=== PATIENT | female | born 1970 | race African-American/Black ===

== ENCOUNTER → 2017-11-11 14:57 | Outpatient (CLI) | payer MEDICAID, SELFPAY ==
--- NOTE | 2017-11-11 15:05 | BI_ITS ---
MAMMOGRAPHY - BILATERAL SCREENING REASON FOR EXAM: Female, 46 years old. Routine annual screening examination. PERTINENT HISTORY: Remote right excisional breast biopsy. TECHNIQUE: Digital bilateral breast nenita (3D mammographic acquisition) in the CC and MLO projections. 2-D mediolateral oblique (MLO) and craniocaudad (CC) views of both breasts were obtained. CAD: Full Field Digital Mammography with Computer Added Detection was performed. COMPARISON: Comparison is made with prior outside examination dated August 30, 2012. FINDINGS: Breast Composition: The breasts are heterogeneously dense, which may obscure small masses. There are no dominant masses or suspicious calcifications. No other significant abnormalities are identified. There has been no significant change since the prior study. BI/SCREENING MAMM (CAD), BILAT IMPRESSION: Stable bilateral screening mammogram. Yearly follow-up mammogram recommended. (A) ASSESSMENT CATEGORY: BIRADS Category 1: Negative. A letter regarding these results will be sent to the patient by the facility within 30 days. Approximately 10% of breast cancers are not detected by mammography. A normal mammogram should not delay biopsy of a clinically suspicious abnormality. [id number] Electronically Signed: Hunter De Anda MD at 9:25 EDT Tel [phone], Service support ,
== END ==
DX: Z12.31 Encounter for screening mammogram for malignant neoplasm of breast (principal)
CPT/HCPCS: 77063; 77067

== ENCOUNTER → 2019-01-02 15:38 | Outpatient (CLI) | payer MEDICAID, SELFPAY ==
--- NOTE | 2019-01-02 15:42 | RAD_ITS ---
STUDY: X-RAY - LUMBAR SPINE REASON FOR EXAM: Female, 48 years old. Left sciatica TECHNIQUE: 3 view(s) of the lumbar spine were obtained. COMPARISON: None FINDINGS: Normal lumbar lordosis. There is mild levo scoliosis. There is a normal alignment of the vertebrae. No evidence for acute fracture or dictation.. Disc space heights are well-maintained. There is minor multilevel endplate spurring The soft tissue structures are unremarkable. RAD/Lumbar Spine 2 or 3 Views IMPRESSION: Mild scoliosis and degenerative changes. No evidence for acute fracture or other significant bony pathology Electronically Signed: Juan Napier MD at 16:08 EDT , Service support ,
--- NOTE | 2019-01-02 15:43 | RAD_ITS ---
STUDY: X-RAY - CERVICAL SPINE REASON FOR EXAM: Female, 48 years old. Chronic neck pain TECHNIQUE: 7 view(s) of the cervical spine were obtained. Including flexion and extension COMPARISON: None FINDINGS: Normal anterior atlantoaxial articulation. Normal odontoid process. There is abnormal straightening of the lordotic curvature. No evidence for acute fracture or subluxation. Mild narrowing of the C5-6 disc space and endplate spurring.. Films obtained in flexion-extension demonstrate no evidence for gross instability The soft tissue structures are unremarkable. RAD/Cerv Spine Obl/Flex/Ext Comp IMPRESSION: Mild spondylosis. No evidence for acute fracture or other significant bony pathology. Electronically Signed: Juan Napier MD at 16:10 EDT , Service support ,
== END ==
DX: M47.812 Spondylosis without myelopathy or radiculopathy, cervical region (principal); M54.42 Lumbago with sciatica, left side
CPT/HCPCS: 72052; 72100

== ENCOUNTER → 2019-04-23 07:15 | Outpatient (CLI) | payer MEDICAID, SELFPAY ==
--- NOTE | 2019-04-23 07:18 | BI_ITS ---
MAMMOGRAPHY - BILATERAL SCREENING REASON FOR EXAM: Female, 48 years old. Routine annual screening examination. PERTINENT HISTORY: Non-contributory. Remote right excisional breast biopsy. TECHNIQUE: Digital bilateral breast conchita (3D mammographic acquisition) in the CC and MLO projections. 2-D mediolateral oblique (MLO) and craniocaudad (CC) views of both breasts were obtained. CAD: Full Field Digital Mammography with Computer Added Detection was performed. COMPARISON: Comparison is made with prior examination dated November 11, 2017. FINDINGS: Breast Composition: The breasts are heterogeneously dense, which may obscure small masses. There are no dominant masses or suspicious calcifications. Stable appearance of the bilateral axillary lymph nodes. No other significant abnormalities are identified. There has been no significant change since the prior study. BI/SCREEN MAMM (CAD) W/CONCHITA BILAT IMPRESSION: Stable bilateral screening mammogram. Yearly follow-up mammogram recommended. (A) ASSESSMENT CATEGORY: BIRADS Category 2: Benign. A letter regarding these results will be sent to the patient by the facility within 30 days. Approximately 10% of breast cancers are not detected by mammography. A normal mammogram should not delay biopsy of a clinically suspicious abnormality. [id number] Electronically Signed: Hunter De Anda, at 9:09 EST , Service support ,
== END ==
DX: Z12.31 Encounter for screening mammogram for malignant neoplasm of breast (principal)
CPT/HCPCS: 77063; 77067

== ENCOUNTER → 2020-02-26 09:34 | Outpatient (CLI) | payer MEDICAID, SELFPAY ==
[2020-02-26 10:15] LABS: Absolute Lymphocyte Count 1.61 X10^3/uL (0.83-4.51); Absolute Neutrophil Count 6.5 X10^3/uL (2.0-7.7); Basophil# 0.04 X10^3/uL; Basophil% 0.5 % (0-1); Eosinophil# 0.03 X10^3/uL; Eosinophils% 0.3 % (0-5); Hemoglobin 14.1 g/dL (12.0-15.0); Lymphocyte # 1.61 X10^3/ul (4.0); Lymphocyte % 18.3 % (19-41); Mean Corp Hgb Conc 32.8 g/dL (32-36); Mean Corpuscular Hgb 30.1 pg (27.0-32.0); Mean Corpuscular Volume 91.7 fL (81-99); Mean Platelet Vol. 10.9 fl (6.2-12.0); Monocyte# 0.58 X10^3/uL; Monocyte% 6.6 % (0-10); NRBC Flagged by Analyzer 0 % (0-5); Neutrophil # 6.51 X10^3/uL (2.7-7.7); Neutrophil % 73.8 % (47-70); Platelet Count 279 K/mm3 (150-450); RBC Distribution Width SD 43.6 fl (35.1-43.9); Red Blood Count 4.69 M/mm3 (4.2-5.4); White Blood Count 8.8 K/mm3 (4.4-11.0)
[2020-02-26 10:45] LABS: Vitamin D,25 Hydroxy 42.3 ng/mL
[2020-02-26 10:46] LABS: ALB/GLOB Ratio 0.9 RATIO (0.9-2.4); AST(SGOT) 17 U/L (15-37); Alanine Aminotransfer ALT/SGPT 26 U/L (13-56); Albumin, Serum 3.9 g/dL (3.2-5.0); Alkaline Phosphatase 105 U/L (45-117); Anion Gap 4 (5-15); BUN 12 mg/dL (7-18); BUN/Creat Ratio 10.3 RATIO (10-20); Calcium,Total 9.2 mg/dL (8.5-10.1); Chloride 111 mmol/L (98-107); Cholesterol 199 mg/dL (200); Creatinine, Serum 1.17 mg/dL (0.55-1.02); EST Glomerular Filtration Rate 52 mL/min (>60); Est Glom Filt Rate - Afr Amer 63 mL/min (>60); Globulin 4.2 g/dL (2.2-4.2); Glucose 98 mg/dL (74-106); High Density Lipoprotein 38 mg/dL; Potassium 3.5 mmol/L (3.5-5.1); Protein, Total 8.1 g/dL (6.4-8.2); Sodium Level 142 mmol/L (136-145); Triglycerides 218 mg/dL; Very Low Density Lipoprotein 44 mg/dL (5-40)
[2020-02-26 10:51] LABS: Hemoglobin A1c 5.8 % (3.8-5.6)
== END ==
PROVIDERS: Family Medicine
DX: I10 Essential (primary) hypertension (principal); E78.5 Hyperlipidemia, unspecified; E55.9 Vitamin D deficiency, unspecified; R73.03 Prediabetes
CPT/HCPCS: 36415; 80053; 80061; 82306; 83036; 85025

== ENCOUNTER 2020-04-23 17:22 | Emergency (ER) | payer MEDICAID, SELFPAY ==
[2020-04-23 17:22] VITALS: BP 149/70; PULSE 77; PULSE 79; RESP 16; TEMP 35.6; O2SAT 99; BMI 35.6
--- NOTE | 2020-04-23 17:50 | US_ITS ---
STUDY: VENOUS DOPPLER ULTRASOUND - LEFT LOWER EXTREMITY REASON FOR EXAM: Female, 49 years old. LEFT LATERAL CALF WARMTH TECHNIQUE: Ultrasound evaluation of the deep vein system to include farnsworth-scale imaging and compression was performed. Farnsworth-scale imaging and Doppler sonographic evaluation, including duplex spectral analysis and qualitative color flow sonography, was performed. COMPARISON: None. FINDINGS: Common Femoral Vein: Normal compression, spontaneity and augmentation. Normal color Doppler. Common Femoral Vein/Greater Saphenous Junction: Normal compression, spontaneity and augmentation. Normal color Doppler. Deep Femoral Vein: Normal compression, spontaneity and augmentation. Normal color Doppler. Femoral Proximal: Normal compression, spontaneity and augmentation. Normal color Doppler. Femoral Middle: Normal compression, spontaneity and augmentation. Normal color Doppler. Femoral Distal: Normal compression, spontaneity and augmentation. Normal color Doppler. Popliteal Vein: Normal compression, spontaneity and augmentation. Normal color Doppler. Posterior Tibial Vein: Normal compression, spontaneity and augmentation. Normal color Doppler. Peroneal Vein: Normal compression, spontaneity and augmentation. Normal color Doppler. US/Venous Duplex Imag/Limited/Uni IMPRESSION: Normal venous Doppler ultrasound of the lower extremity. Electronically Signed: Juan Napier MD at 18:25 EST , Service support ,
--- NOTE | 2020-04-23 18:08 | ED.DCSUM_ITS ---
History of Present Illness Chief Complaint: Lower Extremity Injury Informant: Patient Onset: Weeks - 1.5 Timing: Intermittent, Lasts - hrs Quality: burning/warm Location: left calf Current Severity: - - gone Maximum Severity: Moderate Worsened by: walking Relieved by: rest Associated Symptoms: None. No swelling, chest pain, shortness of breath, palpitations, syncope. Narrative: Patient gets chemotherapy for amyloidosis. She has been having intermittent discomfort in her left calf for the last week and half and she was referred here to get an ultrasound to rule out DVT. She has never had 1 before, nor a PE, nor does she take any aspirin, antiplatelet, anticoagulant. She denies any long trips lately, hospitalization, or recent surgery. No other recent illnesses. No injury to her leg. No numbness. She states she has had some problems with the nerves in her legs in the past however though. - Past Medical History (1) Amyloidosis Status: Chronic Past Medical History - Allergies and Home Meds Allergies/Adverse Reactions: Allergies Penicillins [PCN] Allergy (Verified 04/23/20 17:26) Anaphylaxis [facility] - Smoking Status: Former smoker Review of Systems General: Denies: Chills, Fever, Sweats Eyes: Denies: Visual changes - bilaterally, Diplopia ENT: Denies: Rhinorrhea, Sore throat Cardiovascular: Denies: Chest pain, Palpitations Respiratory: Denies: Dyspnea, Cough, Dyspnea on exertion Gastrointestinal: Denies: Abdominal pain, Nausea, Vomiting, Diarrhea, Melena, Hematochezia Genitourinary: Denies: Dysuria, Hematuria, Frequency Musculoskeletal: Reports: Extremity Pain. Denies: Back pain, Swelling Skin: Denies: Rash, Wounds Neurological: Denies: Headache, Weakness, Numbness Physical Exam Vital Signs/Narrative: Vital Signs Temp Pulse Resp BP Pulse Ox 04/23/20 17:22 96.1 F L 77 16 149/70 H 99 Inital Vital Signs reviewed: Yes General: Well nourished, Well developed, No Acute Distress Head: Normocephalic, Atraumatic Extremities: Nontender, No edema, - - Symmetric appearing bilateral lower legs. No palpable cords, no erythema or cellulitis. Full range of motion throughout all joints of both legs. Skin: Normal color, No rash, No Trauma, - - No signs of cellulitis left lower leg, no lymphangitis, no tenderness. Neurological: Alert, Oriented x3, Cranial nerves II-XII grossly intact, Normal Strength, Normal Sensation, Normal Gait Psychological: Normal affect, Normal Mood Diagnostic/Tx/Re-eval - Medical Decision Making Venous duplex Doppler of the left lower extremity was obtained, preliminary result is negative for DVT. Patient was reassured, certainly she could be having neuropathic pain versus muscular pain. I think it would be reasonable for her to take an occasional anti-inflammatory, she was advised to follow-up with her specialist and/or her regular doctor for this. ED Disposition - Plan for ED Patient: Disposition: Home or Assisted Living Diagnosis: Pain of left calf Instructions: ED Muscle Strain, Extremity [facility] - As Needed (And/or your [facility] specialist)
[2020-04-23 18:30] VITALS: BP 129/74; PULSE 59; RESP 16; O2SAT 98
== END 2020-04-23 18:31 | disposition home or self-care (01) ==
LOC: ED 18:22
PROVIDERS: Emergency Provider Emergency Medicine
DX: M79.662 Pain in left lower leg (principal); Z87.891 Personal history of nicotine dependence
CPT/HCPCS: 93971; 99282

== ENCOUNTER → 2020-06-18 10:03 | Outpatient (CLI) | payer MEDICAID, SELFPAY ==
[2020-06-18 10:51] LABS: Absolute Lymphocyte Count 1.84 X10^3/uL (0.83-4.51); Absolute Neutrophil Count 9.2 X10^3/uL (2.0-7.7); Basophil# 0.06 X10^3/uL; Basophil% 0.5 % (0-1); Eosinophil# 0.04 X10^3/uL; Eosinophils% 0.3 % (0-5); Hematocrit 43.7 % (37-47); Hemoglobin 13.9 g/dL (12.0-15.0); Lymphocyte # 1.84 X10^3/ul (4.0); Lymphocyte % 15.4 % (19-41); Mean Corp Hgb Conc 31.8 g/dL (32-36); Mean Corpuscular Hgb 28.8 pg (27.0-32.0); Mean Corpuscular Volume 90.7 fL (81-99); Mean Platelet Vol. 10.7 fl (6.2-12.0); Monocyte# 0.71 X10^3/uL; NRBC Flagged by Analyzer 0 % (0-5); Neutrophil # 9.24 X10^3/uL (2.7-7.7); Neutrophil % 77.5 % (47-70); Platelet Count 290 K/mm3 (150-450); RBC Distribution Width SD 43.4 fl (35.1-43.9); Red Blood Count 4.82 M/mm3 (4.2-5.4); White Blood Count 11.9 K/mm3 (4.4-11.0)
[2020-06-18 11:23] LABS: Vitamin B12 754 pg/mL (211-911)
[2020-06-18 12:10] LABS: AST(SGOT) 20 U/L (15-37); Alanine Aminotransfer ALT/SGPT 23 U/L (13-56); Albumin, Serum 3.9 g/dL (3.2-5.0); Alkaline Phosphatase 109 U/L (45-117); Anion Gap 6 (5-15); BUN 7 mg/dL (7-18); BUN/Creat Ratio 6.7 RATIO (10-20); CPK Total, Creatine Kinase 177 U/L (26-192); Calcium,Total 9.2 mg/dL (8.5-10.1); Chloride 109 mmol/L (98-107); Cholesterol 213 mg/dL (200); Creatinine, Serum 1.04 mg/dL (0.55-1.02); EST Glomerular Filtration Rate 60 mL/min (>60); Est Glom Filt Rate - Afr Amer 73 mL/min (>60); Glucose 101 mg/dL (74-106); High Density Lipoprotein 37 mg/dL; Iron 72 ug/dL (50-170); Potassium 3.6 mmol/L (3.5-5.1); Protein, Total 7.9 g/dL (6.4-8.2); Sodium Level 142 mmol/L (136-145); Thyroid Stim Hormone (TSH) 1.63 uIU/mL (0.358-3.74); Triglycerides 189 mg/dL; Very Low Density Lipoprotein 38 mg/dL (5-40)
== END ==
DX: I10 Essential (primary) hypertension (principal)
CPT/HCPCS: 36415; 80053; 80061; 82550; 82607; 82746; 83540; 84443; 85025

== ENCOUNTER → 2020-10-28 11:09 | Outpatient (CLI) | payer MEDICAID, SELFPAY ==
--- NOTE | 2020-10-28 11:30 | RAD_ITS ---
STUDY: X-RAY - LUMBAR SPINE REASON FOR EXAM: Female, 49 years old. Paresthesias of the skin. TECHNIQUE: 2 view(s) of the lumbar spine were obtained. COMPARISON: None FINDINGS: Normal lumbar lordosis. There is no substantial scoliosis. There is a normal alignment of the vertebrae. Normal vertebral bodies and endplates. Normal disc space heights. There is no evidence of acute fracture or loss of vertebral axial height. The soft tissue structures are unremarkable. RAD/Lumbar Spine 2 or 3 Views IMPRESSION: Normal x-ray examination of the lumbar spine. Electronically Signed: Jayce Joshua DO at 23:49 EDT Tel [phone], Service support ,
[2020-10-28 11:58] LABS: Cholesterol 242 mg/dL (200); High Density Lipoprotein 38 mg/dL; Triglycerides 79 mg/dL; Very Low Density Lipoprotein 16 mg/dL (5-40)
== END ==
PROVIDERS: Visit Provider Nurse Practitioner Adult Health
DX: E78.5 Hyperlipidemia, unspecified (principal); R20.2 Paresthesia of skin
CPT/HCPCS: 36415; 72100; 80061

== ENCOUNTER → 2020-11-11 15:34 | Outpatient (CLI) | payer MEDICAID, SELFPAY ==
--- NOTE | 2020-11-11 15:37 | BI_ITS ---
MAMMOGRAPHY - BILATERAL SCREENING REASON FOR EXAM: Female, 49 years old. Routine annual screening examination. PERTINENT HISTORY: Non-contributory. TECHNIQUE: Digital bilateral breast conchita (3D mammographic acquisition) in the CC and MLO projections. 2-D mediolateral oblique (MLO) and craniocaudad (CC) views of both breasts were obtained. CAD: Full Field Digital Mammography with Computer Added Detection was performed. COMPARISON: Comparison is made with prior study dated 04/23/2019 and November 11 FINDINGS: Breast Composition: The breasts are heterogeneously dense, which may obscure small masses. There are no dominant masses or suspicious calcifications. Stable small benign appearing bilateral axillary No other significant abnormalities are identified. There has been no significant change since the prior study. BI/SCRN MAMM (CAD)W/CONCHITA BILAT IMPRESSION: Stable bilateral screening mammogram. Yearly follow-up mammogram recommended. (A) ASSESSMENT CATEGORY: BIRADS Category 2: Benign. A letter regarding these results will be sent to the patient by the facility within 30 days. Approximately 10% of breast cancers are not detected by mammography. A normal mammogram should not delay biopsy of a clinically suspicious abnormality. [id number] Electronically Signed: Hunter De Anda MD at 8:04 EDT , Service support ,
== END ==
DX: Z12.31 Encounter for screening mammogram for malignant neoplasm of breast (principal)
CPT/HCPCS: 77063; 77067

== ENCOUNTER → 2021-02-25 08:55 | Outpatient (CLI) | payer MEDICAID, SELFPAY ==
[2021-02-25 11:06] LABS: ALB/GLOB Ratio 0.9 RATIO (0.9-2.4); AST(SGOT) 23 U/L (15-37); Alanine Aminotransfer ALT/SGPT 27 U/L (13-56); Albumin, Serum 3.7 g/dL (3.2-5.0); Alkaline Phosphatase 89 U/L (45-117); Anion Gap 5 (5-15); BUN 13 mg/dL (7-18); BUN/Creat Ratio 14.9 RATIO (10-20); Calcium,Total 9.1 mg/dL (8.5-10.1); Chloride 110 mmol/L (98-107); Cholesterol 235 mg/dL (200); Creatinine, Serum 0.87 mg/dL (0.55-1.02); EST Glomerular Filtration Rate 73 mL/min (>60); Est Glom Filt Rate - Afr Amer 89 mL/min (>60); Globulin 4.2 g/dL (2.2-4.2); Glucose 103 mg/dL (74-106); High Density Lipoprotein 45 mg/dL; Potassium 3.9 mmol/L (3.5-5.1); Protein, Total 7.9 g/dL (6.4-8.2); Sodium Level 141 mmol/L (136-145); Triglycerides 74 mg/dL; Very Low Density Lipoprotein 15 mg/dL (5-40)
== END ==
PROVIDERS: Visit Provider Nurse Practitioner Adult Health
DX: I10 Essential (primary) hypertension (principal); E78.5 Hyperlipidemia, unspecified
CPT/HCPCS: 36415; 80053; 80061

== ENCOUNTER → 2021-03-09 08:36 | Outpatient (CLI) | payer MEDICAID, SELFPAY ==
[2021-03-09 09:16] LABS: Absolute Lymphocyte Count 1.74 X10^3/uL (0.83-4.51); Absolute Neutrophil Count 4.8 X10^3/uL (2.0-7.7); Basophil# 0.03 X10^3/uL; Basophil% 0.4 % (0-1); Eosinophil# 0.03 X10^3/uL; Eosinophils% 0.4 % (0-5); Hematocrit 43.2 % (37-47); Hemoglobin 13.8 g/dL (12.0-15.0); Lymphocyte # 1.74 X10^3/ul (0.83-4.51); Lymphocyte % 24.6 % (19-41); Mean Corp Hgb Conc 31.9 g/dL (32-36); Mean Corpuscular Hgb 28.5 pg (27.0-32.0); Mean Corpuscular Volume 89.1 fL (81-99); Mean Platelet Vol. 10.6 fl (6.2-12.0); Monocyte# 0.46 X10^3/uL; Monocyte% 6.5 % (0-10); NRBC Flagged by Analyzer 0 % (0-5); Neutrophil # 4.79 X10^3/uL (2.7-7.7); Neutrophil % 67.8 % (47-70); Platelet Count 281 K/mm3 (150-450); RBC Distribution Width CV 14.2 % (11.6-14.6); RBC Distribution Width SD 46.1 fl (35.1-43.9); Red Blood Count 4.85 M/mm3 (4.2-5.4); White Blood Count 7.1 K/mm3 (4.4-11.0)
[2021-03-09 09:57] LABS: Cholesterol 222 mg/dL (200); High Density Lipoprotein 46 mg/dL; Triglycerides 71 mg/dL; Very Low Density Lipoprotein 14 mg/dL (5-40)
== END ==
DX: R42 Dizziness and giddiness (principal)
CPT/HCPCS: 36415; 80061; 85025

== ENCOUNTER 2021-08-17 12:01 | Emergency (ER) | payer MEDICAID, SELFPAY ==
[2021-08-17 12:02] VITALS: BP 169/105; PULSE 95; RESP 18; TEMP 36.2; O2SAT 96; BMI 33.3
[2021-08-17 13:37] LABS: Bacteria 0 SEEN /hpf (None Seen); Mucous, Urine 0 SEEN /hpf (<or=2+); Red Blood Cells-Urine 0 SEEN /hpf (0-5)
[2021-08-17 13:38] LABS: Absolute Lymphocyte Count 1.97 X10^3/uL (0.83-4.51); Basophil# 0.05 X10^3/uL; Basophil% 0.6 % (0-1); Eosinophil# 0.18 X10^3/uL; Eosinophils% 2.2 % (0-5); Hemoglobin 13.4 g/dL (12.0-15.0); Lymphocyte # 1.97 X10^3/ul (0.83-4.51); Lymphocyte % 24.6 % (19-41); Mean Corp Hgb Conc 31.9 g/dL (32-36); Mean Corpuscular Hgb 29.3 pg (27.0-32.0); Mean Corpuscular Volume 91.7 fL (81-99); Mean Platelet Vol. 10.2 fl (6.2-12.0); Monocyte# 0.76 X10^3/uL; Monocyte% 9.5 % (0-10); NRBC Flagged by Analyzer 0 % (0-5); Neutrophil # 5.03 X10^3/uL (2.7-7.7); Neutrophil % 62.9 % (47-70); Platelet Count 250 K/mm3 (150-450); RBC Distribution Width CV 14.1 % (11.6-14.6); RBC Distribution Width SD 47.7 fl (35.1-43.9); Red Blood Count 4.58 M/mm3 (4.2-5.4)
[2021-08-17 13:39] LABS: Color, Urine Yellow (Yellow); Glucose, Dipstick Normal (Normal); Ketone-Dipstick Negative (Negative); Leukocyte Esterase-Dipstick Negative /ul (Negative); Nitrite-Dipstick Negative (Negative); Occult Blood-Urine Negative /ul (Negative); Protein-Dipstick Negative (Negative); Urine Bilirubin Dipstick Negative (Negative); Urine Clarity Clear (Clear); Urine Urobilinogen Normal (Normal)
[2021-08-17 13:48] LABS: Squamous Epithelial Cells - UA 0-5 SEEN /hpf (5-10); White Blood Cells 0-5 SEEN /hpf (0-5)
[2021-08-17 13:57] LABS: ALB/GLOB Ratio 0.9 RATIO (0.9-2.4); AST(SGOT) 52 U/L (15-37); Alanine Aminotransfer ALT/SGPT 50 U/L (13-56); Albumin, Serum 3.7 g/dL (3.2-5.0); Alkaline Phosphatase 108 U/L (45-117); Anion Gap 4 (5-15); BUN 13 mg/dL (7-18); Calcium,Total 9.3 mg/dL (8.5-10.1); Chloride 108 mmol/L (98-107); Creatinine, Serum 0.93 mg/dL (0.55-1.02); EST Glomerular Filtration Rate 68 mL/min (>60); Est Glom Filt Rate - Afr Amer 82 mL/min (>60); Estimated Creatinine Clearance 71.16 ml/min; Glucose 97 mg/dL (74-106); Potassium 3.6 mmol/L (3.5-5.1); Protein, Total 7.7 g/dL (6.4-8.2); Sodium Level 140 mmol/L (136-145)
--- NOTE | 2021-08-17 13:58 | CT_ITS ---
STUDY: CT ABDOMEN AND PELVIS WITHOUT CONTRAST REASON FOR EXAM: Female, 50 years old. One week history of bilateral flank pain. No known injury. RADIATION DOSAGE (If Supplied By Facility): CTDIvol = ( 12.81 ) mGy, DLP = ( 617.85 ) mGycm TECHNIQUE: Transaxial images were obtained from the dome of the diaphragm to the symphysis pubis without oral contrast, and without intravenous contrast. Sagittal and coronal images were reconstructed. Individualized dose optimization techniques were used for this CT. COMPARISON: None. FINDINGS: There is retraction of the right nipple. Asymmetrical breast tissue where more breast tissue is seen in the right breast as compared to the left side. Follow-up with repeat mammogram is recommended. The visualized lung bases are unremarkable. The visualized portions of the heart are within normal limits. Normal liver. Normal gallbladder and extrahepatic biliary system. Normal spleen. Normal pancreas. Normal bilateral adrenal glands. Normal right kidney. Normal left kidney. Incidental note is made of a left retroaortic renal vein. There is a small hiatal hernia. Normal small intestine. Normal colon. The appendix is visualized and appears normal. Normal abdominal aorta. Normal inferior vena cava. Normal retroperitoneum. Normal urinary bladder. Calcified phleboliths are seen in the pelvis. The patient is status post hysterectomy. There is a small umbilical hernia containing fat. There are mild degenerative changes of the visualized lumbar spine. CT/Abdomen/Pelvis without Cont IMPRESSION: Findings suggestive of retraction of the right nipple. Clinical correlation is recommended. No acute intra-abdominal abnormality is seen. Electronically Signed: Hunter De Anda MD at 14:40 EDT ,
--- NOTE | 2021-08-17 14:14 | ED.VIS.BACK ---
HPI History of Present Illness Chief Complaint: Flank Pain Informant: patient Narrative Narrative: 50-year-old female presenting to the emergency room with bilateral flank pain. Patient states that the pain has been progressive and now constant. It is worse with movement. She denies any urinary symptoms. No trauma. She notes that she had a head cold last week. No reported fevers. No rashes. No prior history of kidney stone. She does have a history of amyloidosis. [facility] Medical History Amyloidosis GERD (gastroesophageal reflux disease) High cholesterol HTN (hypertension) Migraine Home Medications loratadine 10 mg PO DAILY 04/23/20 [History Last Taken Unknown] losartan 25 mg PO DAILY 04/23/20 [History Last Taken Unknown] pantoprazole 20 mg PO DAILY 04/23/20 [History Last Taken Unknown] sumatriptan succinate 100 mg PO DAILY PRN 04/23/20 [History Last Taken Unknown] topiramate 100 mg PO BID 04/23/20 [History Last Taken Unknown] valacyclovir 500 mg PO DAILY 04/23/20 [History Last Taken Unknown] cholecalciferol (vitamin D3) 08/17/21 [History Last Taken Unknown] gabapentin 08/17/21 [History Last Taken Unknown] magnesium oxide mg 08/17/21 [History Last Taken Unknown] valacyclovir 08/17/21 [History Last Taken Unknown] Allergy/AdvReac Type Severity Reaction Status Date / Time Penicillins [PCN] Allergy Anaphylaxis Verified 08/17/21 12:03 Social History (Updated 08/17/21 @ 14:[address] Sourav Auguste DO) current gender identity: female Smoking Status: Never smoker ROS ROS ED Constitutional Constitutional ED: Denies chills, fever(s) or weight loss Eyes Eyes: Denies change in vision or diplopia ENT ENT ED: Denies ear pain, rhinorrhea or sore throat Cardiovascular Cardiovascular: Denies chest pain, orthopnea, palpitations or racing heartbeat Respiratory/Chest Respiratory/Chest: Denies cough, dyspnea or orthopnea Gastrointestinal Gastrointestinal: Denies abdominal pain, diarrhea, nausea or vomiting Genitourinary Genitourinary ED: Denies dysuria, hematuria or urinary frequency Musculoskeletal Musculoskeletal: Reports back pain; Denies arthralgias or myalgias Integumentary Denies abscess or rash Neurologic Neurologic: Denies headache(s) or weakness Psychiatric Psychiatric: Denies anxiety, depression, suicidal ideation or suicidal thoughts Endocrine Endocrinology: Denies polydipsia, polyphagia or polyuria Allergic/Immunologic Allergic/Immunologic ED: Denies mouth swelling, tongue swelling or urticaria EXAM Physical Exam Const Vital Signs: 08/17/21 12:02 Temperature 97.2 F L Temperature Source Temporal Pulse Rate 95 Respiratory Rate 18 Blood Pressure 169/105 H Blood Pressure Mean 126 Pulse Ox 96 Oxygen Delivery Method Room Air Positive well nourished and well developed General Appearance ED: well developed HEENT Reports normocephalic, head/scalp atraumatic and moist mucous membranes Negative for trauma Eyes PERRL and EOMs intact bilaterally Neck no lymphadenopathy, supple and no JVD Resp normal respiratory effort and clear to auscultation bilaterally Cardio regular rate, regular rhythm and no murmurs GI normal to inspection, nondistended, normoactive bowel sounds and non-tender Palpation: soft Back/Spine no CVA tenderness and normal ROM Back/Spine Narrative: Patient has painful range of motion particularly bending. Tender to palpation over the bilateral CVA regions. No rashes noted. Extremity normal to inspection General Extremety ED: Negative for edema General Extremity: Negative for edema Neuro oriented x3 and CN's II-XII intact bilaterally Sensorium / Orientation: alert Motor Exam: strength 5/5 throughout Psych mental status grossly normal Mood & Affect: Negative for depressed or tearful Skin no rashes or lesions noted and no wounds MDM MDM MDM Narrative Medical decision making narrative: Was normal. CBC and BMP were normal. CT of the abdomen pelvis does not demonstrate any ureterolithiasis or obvious cause for the patient's bilateral flank pain. Incidental possible nipple inversion was discussed with the patient. She gets regular mammograms and exams. She did does not have any knowledge or believes that she has an inverted nipple at this time. Lab Data Attestation: I reviewed the patient's lab results. Labs: Laboratory Results - last 24 hr 08/17/21 08/17/21 08/17/21 13:34 13:34 13:34 WBC 8.0 RBC 4.58 Hgb 13.4 Hct 42.0 MCV 91.7 MCH 29.3 MCHC 31.9 L RDW Std Deviation 47.7 H RDW Coeff of Robyn 14.1 Plt Count 250 MPV 10.2 Immature Gran % (Auto) 0.200 Neut % (Auto) 62.9 Lymph % (Auto) 24.6 [place] % (Auto) 9.5 Eos % (Auto) 2.2 Baso % (Auto) 0.6 Absolute Neuts (auto) 5.0 Absolute Lymphs (auto) 1.97 Nucleated RBC % 0 Sodium 140 Potassium 3.6 Chloride 108 H Carbon Dioxide 28.0 Anion Gap 4 L BUN 13 Creatinine 0.93 Estim Creat Clear Calc 71.16 Est GFR (MDRD) Af Amer 82 Est GFR (MDRD) Non-Af 68 BUN/Creatinine Ratio 14.0 Glucose 97 Calcium 9.3 Total Bilirubin 0.30 AST 52 H ALT 50 Alkaline Phosphatase 108 Total Protein 7.7 Albumin 3.7 Globulin 4.0 Albumin/Globulin Ratio 0.9 Urine Color Yellow Urine Clarity Clear Urine pH 6.0 Ur Specific [place] 1.020 Urine Protein Negative Urine Glucose (UA) Normal Urine Ketones Negative Urine Occult Blood Negative Urine Nitrite Negative Urine Bilirubin Negative Urine Urobilinogen Normal Ur Leukocyte Esterase Negative Urine RBC 0 SEEN Urine WBC 0-5 SEEN Ur Squamous Epith Cells 0-5 SEEN Urine Bacteria 0 SEEN Urine Mucus 0 SEEN Radiography Diagnostic Testing: Clinical Impression(s) from Imaging Studies Abdomen/Pelvis CT 08/17/21 13:58 IMPRESSION: Findings suggestive of retraction of the right nipple. Clinical correlation is recommended. No acute intra-abdominal abnormality is seen. Electronically Signed: Hunter De Anda MD at 14:40 EDT Reading Location ID and State: [facility] / [place] , Service support , Discharge Plan Triage Chief Complaint: Flank Pain Other Complaint: Back ED Provider: Sourav Auguste Dx/Rx/DC Orders Clinical Impression: Bilateral flank pain Instructions: ED Flank Pain, Uncertain Cause Prescriptions: No Action sumatriptan succinate 100 MG tablet 100 mg PO DAILY PRN (Reason: HEADACHEE) RF: 0 valacyclovir 500 MG tablet 500 mg PO DAILY RF: 0 pantoprazole 20 MG tablet 20 mg PO DAILY RF: 0 losartan 25 MG tablet 25 mg PO DAILY RF: 0 topiramate 100 MG tablet 100 mg PO BID RF: 0 loratadine 10 MG capsule 10 mg PO DAILY RF: 0 valacyclovir 500 mg tablet RF: 0 magnesium oxide 400 mg (241.3 mg magnesium) tablet RF: 0 gabapentin 100 mg capsule RF: 0 cholecalciferol (vitamin D3) 1,250 mcg (50,000 unit) capsule RF: 0 Primary Care Provider: Danielle Pinto Referrals: Danielle Pinto, TRANSPORT TECHNICIAN-C [Primary Care Provider] - 1 Week if not improving Disposition Disposition: Home, Self Care
== END 2021-08-17 15:00 | disposition home or self-care (01) ==
PROVIDERS: Emergency Provider Emergency Medicine; PCP Nurse Practitioner Adult Health; Visit Provider Emergency Medicine
DX: R10.9 Unspecified abdominal pain (principal); I10 Essential (primary) hypertension; E78.00 Pure hypercholesterolemia, unspecified; K21.9 Gastro-esophageal reflux disease without esophagitis; Z79.899 Other long term (current) drug therapy
CPT/HCPCS: 74176; 80053; 81001; 85025; 99283; A4216

== ENCOUNTER → 2021-11-24 | Outpatient (CLI) | payer MEDICAID, SELFPAY ==
[2021-11-24 08:28] LABS: Absolute Lymphocyte Count 1.72 X10^3/uL (0.83-4.51); Absolute Neutrophil Count 5.4 X10^3/uL (2.0-7.7); Basophil# 0.04 X10^3/uL; Basophil% 0.5 % (0-1); Eosinophil# 0.09 X10^3/uL; Eosinophils% 1.1 % (0-5); Hematocrit 40.6 % (37-47); Hemoglobin 13.7 g/dL (12.0-15.0); Lymphocyte # 1.72 X10^3/ul (0.83-4.51); Lymphocyte % 21.7 % (19-41); Mean Corp Hgb Conc 33.7 g/dL (32-36); Mean Corpuscular Volume 88.8 fL (81-99); Mean Platelet Vol. 9.9 fl (6.2-12.0); Monocyte# 0.67 X10^3/uL; Monocyte% 8.4 % (0-10); NRBC Flagged by Analyzer 0 % (0-5); Neutrophil # 5.39 X10^3/uL (2.7-7.7); Platelet Count 250 K/mm3 (150-450); RBC Distribution Width SD 45.4 fl (35.1-43.9); Red Blood Count 4.57 M/mm3 (4.2-5.4); White Blood Count 7.9 K/mm3 (4.4-11.0)
[2021-11-24 09:13] LABS: AST(SGOT) 34 U/L (15-37); Alanine Aminotransfer ALT/SGPT 40 U/L (13-56); Albumin, Serum 3.9 g/dL (3.2-5.0); Alkaline Phosphatase 96 U/L (45-117); Anion Gap 5 (5-15); BUN 17 mg/dL (7-18); BUN/Creat Ratio 15.3 RATIO (10-20); Calcium,Total 8.8 mg/dL (8.5-10.1); Chloride 106 mmol/L (98-107); Creatinine, Serum 1.11 mg/dL (0.55-1.02); EST Glomerular Filtration Rate 55 mL/min (>60); Est Glom Filt Rate - Afr Amer 67 mL/min (>60); Glucose 106 mg/dL (74-106); Iron 70 ug/dL (50-170); Iron Binding Capacity,Total 352 ug/dL (250-450); Potassium 3.9 mmol/L (3.5-5.1); Protein, Total 7.9 g/dL (6.4-8.2); Sodium Level 140 mmol/L (136-145); Thyroid Stim Hormone (TSH) 1.91 uIU/mL (0.358-3.74)
[2021-11-24 09:18] LABS: Vitamin B12 730 pg/mL (211-911)
[2021-11-24 13:44] LABS: Uric Acid 4.5 mg/dL (2.6-6.0)
[2021-11-26 16:40] LABS: Vitamin D 1,25-Dihydroxy 49.2 pg/mL (24.8-81.5)
== END | disposition home or self-care (01) ==
LOC: LAB 08:08
PROVIDERS: Referring Provider Nurse Practitioner Adult Health; Visit Provider Nurse Practitioner Adult Health
DX: G43.001 Migraine without aura, not intractable, with status migrainosus (principal); M25.532 Pain in left wrist
CPT/HCPCS: 36415; 80053; 82607; 82652; 83540; 83550; 84443; 84550; 85025

== ENCOUNTER → 2021-12-07 | Outpatient (CLI) | payer MEDICAID, SELFPAY ==
--- NOTE | 2021-12-07 08:08 | RAD_ITS ---
STUDY: X-RAY - LEFT WRIST REASON FOR EXAM: Female, 50 years old. 3 month history of pain. No known injury. TECHNIQUE: view(s) of the wrist were obtained. COMPARISON: None. FINDINGS: Normal visualized distal radius and ulna. Normal radiocarpal articulation. Normal distal radioulnar articulation. Normal carpal bones. Normal carpal articulations. Normal carpometacarpal articulation of the thumb. Normal second through fifth carpometacarpal articulations. Normal visualized metacarpal bones. Soft tissue swelling. RAD/Wrist min 3 Views IMPRESSION: Soft tissue swelling. Electronically Signed: Hunter De Anda MD at 8:44 EDT ,
== END | disposition home or self-care (01) ==
PROVIDERS: Referring Provider Nurse Practitioner Adult Health; Visit Provider Nurse Practitioner Adult Health
DX: M25.532 Pain in left wrist (principal)
CPT/HCPCS: 73110

== ENCOUNTER → 2021-12-28 | Outpatient (CLI) | payer MEDICAID, SELFPAY ==
--- NOTE | 2021-12-28 08:23 | BI_ITS ---
MAMMOGRAPHY - BILATERAL SCREENING REASON FOR EXAM: Female, 51 years old. Routine annual screening examination. PERTINENT HISTORY: Non-contributory. TECHNIQUE: Digital bilateral breast conchita (3D mammographic acquisition) in the CC and MLO projections. 2-D mediolateral oblique (MLO) and craniocaudad (CC) views of both breasts were obtained. CAD: Full Field Digital Mammography with Computer Added Detection was performed. COMPARISON: Comparison is made with prior study 11/11/2020 and 04/23/2019. FINDINGS: Breast Composition: The breasts are heterogeneously dense, which may obscure small masses. There are no dominant masses or suspicious calcifications. Stable benign-appearing bilateral axillary lymph nodes. No other significant abnormalities are identified. There has been no significant change since the prior study. BI/SCRN MAMM (CAD)W/CONCHITA BILAT IMPRESSION: Stable bilateral screening mammogram. Yearly follow-up mammogram recommended. (A) ASSESSMENT CATEGORY: BIRADS Category 2: Benign. A letter regarding these results will be sent to the patient by the facility within 30 days. Approximately 10% of breast cancers are not detected by mammography. A normal mammogram should not delay biopsy of a clinically suspicious abnormality. [id number] Electronically Signed: Hunter De Anda MD at 9:32 EDT ,
== END | disposition home or self-care (01) ==
LOC: OPBI 08:22
PROVIDERS: Visit Provider Nurse Practitioner Adult Health
DX: Z12.31 Encounter for screening mammogram for malignant neoplasm of breast (principal)
CPT/HCPCS: 77063; 77067

== ENCOUNTER → 2022-02-01 | Outpatient (CLI) | payer MEDICAID, SELFPAY ==
--- NOTE | 2022-02-01 16:51 | NEURO_ITS ---
NCS and/or EMG Patient Report Ordering Doctor: Danielle Pinto DATE OF SERVICE: 02/01/22 Indication: Left wrist pain and mild sensory loss of the lateral fingers. History of amyloidosis. Evaluate for median neuropathy. Findings: Nerve conduction studies were performed in the left upper extremity. The left median motor study recording the abductor pollicis brevis showed a normal amplitude, borderline distal latency and normal conduction velocity. The left ulnar motor study recording the abductor digiti minimi showed a normal amplitude, normal distal latency and normal conduction velocity. No conduction block or focal slowing was present across the elbow. The left median sensory response recording digit two showed a normal amplitude, normal latency and borderline conduction velocity. The left ulnar sensory response recording digit five showed a normal amplitude, latency and conduction velocity. The left radial sensory response recording over the extensor snuff box showed a normal amplitude, latency and conduction velocity. Left median-ulnar lumbrical / interosseous motor latencies showed a prolonged median latency compared to the ulnar. Needle EMG of the left upper extremity muscles was performed. No denervation was seen in any muscle. All motor unit morphology, activation and recruitment pa tterns were normal. Impression: This is a borderline study. There is borderline electrophysiologic evidence of median neuropathy across the left wrist. If desired, this finding could be further characterized with a neuromuscular ultrasound of the left wrist. Agustín Menjivar D.O. Multi Select Codes Neurology Neurology Interp Codes: 00144-89 Musc test done w/n test comp (interp) and 85881-01 Nrv cndj test 7-8 studies (interp)
== END | disposition home or self-care (01) ==
LOC: PSN 15:57
PROVIDERS: Visit Provider Nurse Practitioner Adult Health
DX: M25.532 Pain in left wrist (principal)
CPT/HCPCS: 95886; 95910

== ENCOUNTER → 2022-08-09 | Outpatient (CLI) | payer MEDICAID, SELFPAY ==
--- NOTE | 2022-08-09 08:33 | RAD_ITS ---
INDICATION: PAIN EXAMINATION/TECHNIQUE: X-RAY - RIGHT XR Foot Min 3 Views COMPARISON: None. FINDINGS: SOFT TISSUES: No soft tissue swelling or gas. Soft tissue calcifications are noted at the distal and of the Achilles tendon near the insertion. No radiopaque foreign body. BONES/JOINTS: No acute fracture or subluxation.. Normal alignment. Preservation of the joint space.. No sclerotic or destructive changes observed. RAD/Foot min 3 Views IMPRESSION: Calcifications at the distal end of the Achilles tendon near the insertion. Electronically Signed: Chase Araujo DO at 17:09 EDT ,
--- NOTE | 2022-08-09 08:33 | RAD_ITS ---
INDICATION: PAIN EXAMINATION/TECHNIQUE: X-RAY - LEFT XR Foot Min 3 Views COMPARISON: None. FINDINGS: SOFT TISSUES: No soft tissue swelling or gas. No radiopaque foreign body. BONES/JOINTS: No acute fracture or subluxation.. Normal alignment. Preservation of the joint space.. No sclerotic or destructive changes observed. RAD/Foot min 3 Views IMPRESSION: Negative. Electronically Signed: Chase Araujo DO at 17:07 EDT ,
== END | disposition home or self-care (01) ==
LOC: RAD 08:25
PROVIDERS: Referring Provider Nurse Practitioner Family; Visit Provider Nurse Practitioner Family
DX: R73.03 Prediabetes (principal); E55.9 Vitamin D deficiency, unspecified; E78.5 Hyperlipidemia, unspecified; I10 Essential (primary) hypertension
CPT/HCPCS: 73630

== ENCOUNTER → 2023-04-04 | Outpatient (CLI) | payer MEDICAID, SELFPAY ==
[2023-04-04 08:14] LABS: Absolute Lymphocyte Count 2.13 X10^3/uL (0.83-4.51); Absolute Neutrophil Count 5.6 X10^3/uL (2.0-7.7); Basophil# 0.03 X10^3/uL; Basophil% 0.3 % (0-1); Eosinophil# 0.08 X10^3/uL; Eosinophils% 0.9 % (0-5); Hemoglobin 13.1 g/dL (12.0-15.0); Lymphocyte # 2.13 X10^3/ul (0.83-4.51); Lymphocyte % 24.5 % (19-41); Mean Corpuscular Hgb 29.2 pg (27.0-32.0); Mean Corpuscular Volume 91.3 fL (81-99); Monocyte# 0.82 X10^3/uL; Monocyte% 9.4 % (0-10); NRBC Flagged by Analyzer 0 % (0-5); Neutrophil % 64.7 % (47-70); Platelet Count 284 K/mm3 (150-450); RBC Distribution Width CV 13.8 % (11.6-14.6); RBC Distribution Width SD 46.4 fl (35.1-43.9); Red Blood Count 4.49 M/mm3 (4.2-5.4); White Blood Count 8.7 K/mm3 (4.4-11.0)
[2023-04-04 10:42] LABS: ALB/GLOB Ratio 1.1 RATIO (0.9-2.4); AST(SGOT) 28 U/L (15-37); Alanine Aminotransfer ALT/SGPT 36 U/L (13-56); Albumin, Serum 3.6 g/dL (3.2-5.0); Alkaline Phosphatase 83 U/L (45-117); Anion Gap 7 (5-15); BUN 10 mg/dL (7-18); Calcium,Total 8.5 mg/dL (8.5-10.1); Chloride 110 mmol/L (98-107); Cholesterol 132 mg/dL (200); Creatinine, Serum 0.83 mg/dL (0.55-1.02); EST Glomerular Filtration Rate 77 mL/min (>60); Est Glom Filt Rate - Afr Amer 93 mL/min (>60); Globulin 3.3 g/dL (2.2-4.2); Glucose 100 mg/dL (74-106); High Density Lipoprotein 45 mg/dL; Protein, Total 6.9 g/dL (6.4-8.2); Sodium Level 143 mmol/L (136-145); Triglycerides 92 mg/dL; Very Low Density Lipoprotein 18 mg/dL (5-40)
[2023-04-04 14:08] LABS: Hemoglobin A1c 6.1 % (3.8-5.6)
== END | disposition home or self-care (01) ==
LOC: LAB 07:16
PROVIDERS: Referring Provider Nurse Practitioner Family; Visit Provider Nurse Practitioner Family
DX: I10 Essential (primary) hypertension (principal); E78.5 Hyperlipidemia, unspecified; R73.03 Prediabetes
CPT/HCPCS: 36415; 80053; 80061; 83036; 84443; 85025

== ENCOUNTER → 2023-05-09 | Outpatient (CLI) | payer MEDICAID, SELFPAY ==
--- NOTE | 2023-05-09 07:40 | BI_ITS ---
MAMMOGRAPHY - BILATERAL SCREENING REASON FOR EXAM: Female, 52 years old. Routine annual screening examination. PERTINENT HISTORY: Non-contributory. Remote right fibroadenoma excision. TECHNIQUE: Digital bilateral breast conchita (3D mammographic acquisition) in the CC and MLO projections. 2-D mediolateral oblique (MLO) and craniocaudad (CC) views of both breasts were obtained. CAD: Full Field Digital Mammography with Computer Added Detection was performed. COMPARISON: Comparison is made with prior study dated December 28, 2021 and November 11, 2020. FINDINGS: Breast Composition: The breasts are heterogeneously dense, which may obscure small masses. There are no dominant masses or suspicious calcifications. Stable benign-appearing bilateral axillary lymph nodes. No other significant abnormalities are identified. There has been no significant change since the prior study. BI/SCRN MAMM (CAD)W/CONCHITA BILAT IMPRESSION: Stable bilateral screening mammogram. Yearly follow-up mammogram recommended. (A) ASSESSMENT CATEGORY: BIRADS Category 2: Benign. A letter regarding these results will be sent to the patient by the facility within 30 days. Approximately 10% of breast cancers are not detected by mammography. A normal mammogram should not delay biopsy of a clinically suspicious abnormality. [id number] Electronically Signed: Hunter De Anda MD at 14:15 EST ,
--- OUTSIDE RECORDS SUMMARY | 2023-05-09 08:01 | XMS RPT_ITS | CCD ---
Author Name Unknown Address [address] [place] [address] Organization [facility] Care Team Providers Care Personal Attendant Name Role Phone Nat Rome Primary Care Provider Beena GONZALES, Kelsey Marshall Unavailable Beena GONZALES, Kelesy Marshall Unavailable Caron Pinto CNP Primary Care Provider FANTA WIGGINS Referring Unavailable PINTO, CARON K Primary Care Unavailable FANTA WIGGINS Referring Unavailable PINTO, CARON K Primary Care Unavailable PINTO, CARON K Primary Care Unavailable MIKY SALINAS Attending Unavailable CARON PINTO K Primary Care Unavailable FANTA WIGGINS Referring Unavailable SWIHART, NAT L Primary Care Unavailable FANTA WIGGINS Referring Unavailable SWIHART, NAT L Primary Care Unavailable SAMARAHong, FANTA Patton Referring Unavailable SAMFANTA ANTON Attending Unavailable FANTA WIGGINS Referring Unavailable SWIHART, NAT L Primary Care Unavailable SWIHART, NAT L Referring Unavailable SWIHART, NAT L Primary Care Unavailable SWIHART, NAT L Referring Unavailable SAMARAFANTA Pitts Attending Unavailable SWIHART, NAT L Primary Care Unavailable SWIHART, NAT L Referring Unavailable SWIHART, NAT L Primary Care Unavailable FANTA WIGGINS Referring Unavailable FANTA WIGGINS Attending Unavailable PINTO, CARON K Primary Care Unavailable Beena RN, Kelsey Marshall Unavailable [phone] Allergies Allergy Classification Reported Allergen(s) Allergy Type Date of Onset Reaction(s) Facility (19 sources) Amoxicillin; Translations: [AMOXICILLIN] Drug Allergy 09-25-2012 Other: See Comments [facility] (19 sources) Penicillins; Translations: [PENICILLINS] Drug Allergy 03-07-2014 Other: See Comments [facility] Medications Current Medications Medication Drug Class(es) Dates Sig (Normalized) Sig (Original) perflutren lipid microspheres 1.3 mL in NaCl (PF) 0.9% 10 mL injection (DEFINITY) (15 sources) Start: 11-19-2021 End: 02-18-2023 perflutren lipid microspheres 1.3 mL in NaCl (PF) 0.9% 10 mL injection (DEFINITY) 125 ml sodium chloride 9 mg/ml prefilled syringe (15 sources) Start: 11-19-2021 End: 02-18-2023 sodium chloride 0.9 % (flush) 10 mL (BD POSIFLUSH) Completed/Discontinued Medications Medication Drug Class(es) Dates Sig (Normalized) Sig (Original) atorvastatin 20 mg oral tablet (9 sources) HMG-CoA Reductase Inhibitor Start: 03-04-2022 take 1 tablet by mouth once daily atorvastatin (LIPITOR) 20 mg tablet Take 20 mg by mouth once daily. 0 03/04/2022 Active Problems Active Problems Problem Classification Problem Date Documented Da te Episodic/Chronic Conditions associated with dizziness or vertigo (20 sources) Vertigo of central origin; Translations: [Vertigo of central origin] Onset: 0 07-21-2009 Episodic Esophageal disorders (18 sources) Gastroesophageal reflux disease; Translations: [Gastro-esophageal reflux disease without esophagitis] 01-21-2016 Chronic Headache; including migraine (20 sources) Migraine; Translations: [Migraine, unspecified, not intractable, without status migrainosus] Onset: 5 11-06-2009 Chronic Other connective tissue disease (3 sources) Cramp; Translations: [Cramp and spasm] Episodic Other gastrointestinal disorders (18 sources) Intestinal malabsorption; Translations: [Intestinal malabsorption, unspecified] Onset: 0 12-03-2009 Chronic Other nervous system disorders (1 source) Neuropathy; Translations: [Polyneuropathy, unspecified] Chronic Other nervous system disorders (1 source) Polyneuropathy in diseases classified elsewhere; Translations: [Familial transthyretin amyloidosis (HCC)] Onset: 2 Chronic Other nervous system disorders (1 source) Skin sensation disturbance; Translations: [Unspecified disturbances of skin sensation] Episodic Other nutritional; endocrine; and metabolic disorders (20 sources) Amyloidosis; Translations: [Heredofamilial amyloidosis, unspecified] Onset: 3 03-07-2013 Chronic Other nutritional; endocrine; and metabolic disorders (19 sources) Hereditary amyloidosis; Translations: [Heredofamilial amyloidosis, unspecified] Onset: 4 09-03-2013 Chronic Other nutritional; endocrine; and metabolic disorders (1 source) Familial amyloid polyneuropathy; Translations: [Neuropathic heredofamilial amyloidosis] Chronic Other nutritional; endocrine; and metabolic disorders (1 source) Other amyloidosis; Translations: [Amyloidogenic transthyretin amyloidosis (HCC)] Onset: 3 Chronic Other nutritional; endocrine; and metabolic disorders (1 source) Neuropathic heredofamilial amyloidosis; Translations: [Familial transthyretin amyloidosis (HCC)] Onset: 2 Chronic Viral infection (18 sources) Genital herpes simplex; Translations: [Herpesviral infection of urogenital system, unspecified] 11-06-2009 Chronic Past or Other Problems Problem Classification Problem Date Documented Da te Episodic/Chronic Abdominal pain (18 sources) Indigestion; Translations: [Epigastric pain] Onset: 04-07-2017 04-07-2017 Episodic Results Test Name Value Interpretation Reference Range Facil ity Vital Signs Date Time Vital Sign Value Performing Clinician Melanie camp 04-29-2022 15:02-0500 Body temperature 97.7 [degF] Fanta Wiggins DO Work Phone: [facility] 04-29-2022 15:02-0500 Body weight 105 kg Fanta Martinezs DO Work Phone: [facility] 04-29-2022 15:02-0500 Diastolic blood pressure 90 mm[Hg] Fanta Martinezs DO Work Phone: [facility] 04-29-2022 15:02-0500 Heart rate 70 /min Fanta Martinezs DO Work Phone: [facility] 04-29-2022 15:02-0500 Respiratory rate 18 /min Fantalindsay Wiggins DO Work Phone: [facility] 04-29-2022 15:02-0500 Systolic blood pressure 136 mm[Hg] Fanta Samaras DO Work Phone: [facility] 03-30-2022 08:38-0500 Body height 170.2 cm Miky Salinas MD Work Phone: [facility] 03-30-2022 08:38-0500 Body weight 98.43 kg Miky Salinas MD Work Phone: [facility] 03-30-2022 08:38-0500 Diastolic blood pressure 87 mm[Hg] Miky Salinas MD Work Phone: [facility] 03-30-2022 08:38-0500 Heart rate 73 /min Miky Salinas MD Work Phone: [facility] 03-30-2022 08:38-0500 SaO2% (BldA) [Mass fraction] 100 % Miky Salinas MD Work Phone: [facility] 03-30-2022 08:38-0500 Systolic blood pressure 133 mm[Hg] Miky Salinas MD Work Phone: [facility] 12-14-2021 09:38-0400 Body temperature 98.4 [degF] Fanta Samaras DO Work Phone: [facility] 12-14-2021 09:38-0400 Body weight 100.1 kg Fanta Samaras DO Work Phone: [facility] 12-14-2021 09:38-0400 Diastolic blood pressure 87 mm[Hg] Fanta Samaras DO Work Phone: [facility] 12-14-2021 09:38-0400 Heart rate 67 /min Fanta Samaras DO Work Phone: [facility] 12-14-2021 09:38-0400 Respiratory rate 18 /min Fanta Samaras DO Work Phone: [facility] 12-14-2021 09:38-0400 Systolic blood pressure 141 mm[Hg] Fanta Samaras DO Work Phone: [facility] 11-19-2021 15:30-0400 Body height 169.5 cm Fanta Wiggins DO Work Phone: [facility] 11-19-2021 15:30-0400 Body temperature 97.59 [degF] Fanta Wiggins DO Work Phone: [facility] 11-19-2021 15:30-0400 Body weight 98.84 kg Fanta Wiggins DO Work Phone: [facility] 11-19-2021 15:30-0400 Diastolic blood pressure 78 mm[Hg] Fanta Wiggins DO Work Phone: [facility] 11-19-2021 15:30-0400 Heart rate 69 /min Fanta Wiggins DO Work Phone: [facility] 11-19-2021 15:30-0400 Respiratory rate 18 /min Fanta Wiggins DO Work Phone: [facility] 11-19-2021 15:30-0400 SaO2% (BldA) [Mass fraction] 100 % Fanta Wiggins DO Work Phone: [facility] 11-19-2021 15:30-0400 Systolic blood pressure 140 mm[Hg] Fanta Wiggins DO Work Phone: [facility] Encounters Encounter Date Encounter Type Care Provider Facility Start: 04-01-2023 Refill Fanta stafford DO Work Phone: Hematology/Oncology Procedures Date Procedure Procedure Detail Performing Clinician Start: 11-03-2022 Lipid 1996 panel - S nery or Plasma Fanta Wiggins DO Work Phone: Start: 12-13-2021 Adult depression scr eening assessment Fanta Wiggins DO Work Phone: Start: 05-11-2021 Adult depression scr eening assessment Cassy Dumont MD Work Phone: Start: 02-18-2016 Colonoscopy Cassy Dumont MD Work Phone: Start: 08-30-2012 Mammography Cassy Dumont MD Work Phone: Plan of Treatment Date Care Activity Detail Author Start: 11-04-2027 Lipid panel Lipid Screening [facility] Start: 11-04-2027 LIPID SCREEN LIPID SCREEN [facility] Start: 11-03-2025 DIABETES SCREEN DIABETES SCREEN [facility] Start: 11-03-2025 Diabetes Screening Diabetes Screening [facility] Start: 04-28-2025 DIABETES SCREEN DIABETES SCREEN [facility] Start: 04-06-2025 DIABETES SCREEN DIABETES SCREEN [facility] Start: 02-08-2025 DIABETES SCREEN DIABETES SCREEN [facility] Start: 01-04-2025 DIABETES SCREEN DIABETES SCREEN [facility] Start: 11-19-2024 DIABETES SCREEN DIABETES SCREEN [facility] Start: 05-11-2024 DIABETES SCREEN DIABETES SCREEN [facility] Start: 12-17-2022 Covid-19 Vaccine ( season) Covid-19 Vaccine () [facility] Start: 12-17-2022 Influenza vaccination [facility] Start: 12-13-2022 Adult depression screening assessment DEPRESSION SCREENING [facility] Start: 08-27-2022 End: 10-27-2022 CBC W Auto Differential panel - Blood CBC + DIFF Lab Routine Neuropathic heredofamilial amyloidosis (HCC) Expected: 08/27/2022 (Approximate), Expires: 10/27/2022 [facility] Work Phone: Immunizations Immunization Date Immunization Notes Care Provider Dav vital 03-02-2021 influenza virus vaccine, unspecified formulation Fanta Wiggins DO Work Phone: [facility] 12-31-2020 COVID-19 vaccine, ag e 12+ yr (PFIZER-BIONTECH - PURPLE TOP) Cassy Dumont MD Work Phone: [facility] Work Phone: 12-10-2020 COVID-19 vaccine, ag e 12+ yr (PFIZER-BIONTECH - PURPLE TOP) Cassy Dumont MD Work Phone: [facility] Work Phone: 11-06-2009 tetanus toxoid, redu layla diphtheria toxoid, and acellular pertussis vaccine, adsorbed Cassy Dumont MD Work Phone: [facility] Payers Date Payer Category Payer Medicaid [employer] [id number] 2012-Present [phone] [address] [place] [address] Medicaid [id number] 2012 Medicaid [id number] 2012 Medicaid [id number] Social History Date Type Detail Facility Start: 03-07-2013 Tobacco smoking stat us RIIS Never smoked tobacco [facility] Start: 05-11-2021 End: 04-29-2022 Alcohol intake Current drinker of alcohol (finding) [facility] Start: 09-28-2012 History SDOH Alcohol Comment rarely [facility] Start: 1970 Sex Assigned At Not on file [facility] Start: 03-07-2013 Tobacco use and exposure Smoke less tobacco non-user [facility] Start: 11-09-2021 End: 03-30-2022 Exposure to SARS-CoV-2 (event) Not sure [facility] Start: 04-29-2022 End: 04-30-2022 History of Social function [facility] Start: 04-29-2022 End: 04-30-2022 Tobacco use panel [facility] Adult Depression Scr eening Assessment 1 [facility] Clinical Notes 12-09-2009 to 04-29-2022 Trace Rolon LPN - 04/29/2022 3:02 PM Maria C Wiggins DO - 04/29/2022 3:01 PM Edgardo Salinas MD - 03/30/2022 9:09 AM Tania Mcgowan LPN - 12/14/2021 9:36 AM EDT Note Date & Type Note Facility 04-29-2022 Note HNO ID: [id number] Author: Fanta Wiggins DO Service: ? Author Type: Physician Type: Progress Notes Filed: 05/03/2022 2:59 PM Note Text: [facility] Hematologic Oncology and Blood disorders Progress Note (Elements copied from my note dated 12/14/2021, have been reviewed and updated where appropriate, and all reflect current assessment and medical decision making during today's encounter, April 29, 2022) PATIENT NAME: Le Toussaint DATE OF : 1970 ATTENDING STAFF: Fanta Wiggins D.O. 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 TTEs unremarkable 10/2012, 07/2015, ECGs normal 09/2012, 09/2014,05/2015, NT-pro-BNP and trop T so far always WNL HISTORY AND TREATMENT SUMMARY: 09/13/2012 - 03/07/2013: Diflunisal 500mg BID Side effects: Occasional upset stomach if she takes on empty stomach Best response: Complete resolution of numbness/tingling and hand swelling Reason for D/C: Diagnostic trial to determine whether a transient inflammatory state may have caused her symptoms 02/07/19 - 09/2020: Patisiran 0.3mg/kg/dose IV Q3 weeks Reason for D/C: stopped due to allergic reactions (hives, throat swelling) 09/2020 - Present: Off treatment INTERVAL HISTORY: Ms Toussaint is here today for follow up. She has been on the Dolobid and says that the neuropathy that she had been having is now completely resolved. She feels well. No fevers or infections. Good urine output. No LH or dizziness. No chest pain or palpitations. REVIEW OF SYSTEMS: 10 pt ROS reviewed and negative except as outlined above. ALLERGIES: ALLERGIES Allergen Reactions Amoxicillin Other: See Comments Unable to swallow Penicillins Other: See Comments Swelling of throat MEDICATIONS: Medications were reviewed and updated. Current Outpatient Medications Medication Sig diflunisal (DOLOBID) 500 mg tab TAKE 1 TABLET BY MOUTH EVERY OTHER DAY. TAKE IN THE MORNING WITH FOOD. gabapentin (NEURONTIN) 100 mg capsule TAKE 1 CAPSULE BY MOUTH THREE TIMES DAILY FOR 30 DAYS. SUMAtriptan (IMITREX) 100 mg tablet TAKE 1 TABLET BY MOUTH EVERY DAY NEEDED magnesium oxide (MAG-OX) 400 mg (241.3 mg magnesium) tablet TAKE 1 TABLET BY MOUTH EVERY DAY atorvastatin (LIPITOR) 20 mg tablet Take 20 mg by mouth once daily. cholecalciferol, Vitamin D3, (VITAMIN D3) 1,250 mcg (50,000 unit) cap capsule one time a week. meloxicam (MOBIC) 7.5 mg tablet as needed. valACYclovir (VALTREX) 500 mg tablet Take 1 tablet by mouth once daily. loratadine (CLARITIN) 10 mg tablet Take 1 tablet by mouth once daily. pantoprazole DR (PROTONIX) 20 mg tablet Take 1 tablet by mouth once daily. vitamin D3-folic acid 125 mcg (5,000 unit)-1 mg tab Take by mouth. VITAMIN A ORAL Take 1 capsule by mouth. 2400 per gelcap elderberry fruit (ELDERBERRY ORAL) Take 2 Doses by mouth once daily. Taking one gummy daily with Zinc losartan (COZAAR) 50 mg tablet Take 50 mg by mouth once daily. pravastatin (PRAVACHOL) 10 mg tablet Take 10 mg by mouth once daily. MULTIVITAMIN TAB Take one(1) tablet daily. topiramate (TOPAMAX) 100 mg tablet TAKE 1 TABLET BY MOUTH TWICE A DAY Current Facility-Administered Medications Medication Dose Route Frequency perflutren lipid microspheres 1.3 mL in NaCl (PF) 0.9% 10 mL injection (DEFINITY) INTRAVENOUS DIRECTED PRN sodium chloride 0.9 % (flush) 10 mL (BD POSIFLUSH) 10 mL INTRAVENOUS DIRECTED PRN PERTINENT PAST MEDICAL/SURG/SOC/FAM HISTORY: Dizziness Headaches History of genital herpes Uterine fibroids Menorrhagia Hypertension with related toxemia Iron deficiency anemia C secion Partial hysterectomy Benign breast cyst excised C scope and EGD Single 2 children social alcohol use Father: Hereditary amyloid with involvement of heart and peripheral nerves[facility] PHYSICAL EXAM: 04/29/22 1502 BP: 136/90 Pulse: 70 Resp: 18 Temp: 36.5 ?C (97.7 ?F) TempSrc: Oral Weight: 105 kg (231 lb 7.7 oz) General appearance: NAD, well appearing woman Skin: No rashes or lesions Lungs: Lungs clear to auscultation. No wheezing, rhonchi, rales. Heart: regular rate Abdomen: soft and non tender without guarding or organomegaly Extremities: no edema, symmetric LE; R volar wrist ttp without deformity DATA REVIEW: I personally reviewed the patient's data. Troponin T Date Value Ref Range Status 11/19/2021 <0.010 0.000 - 0.029 ng/mL Final N (more content not included)... [facility] 04-29-2022 Nurse Note Additional intake questions: Has the patient had fever, nausea, vomiting, diarrhea, constipation, fatigue for > 1 week? No Does the patient have a decreased appetite? No Does patient want to see a Wax Pattern Assembler? No (yes to any of above refer patient to schedulers for dietitian appointment) ) Does patient have any new or increased numbness or tingling of extremities? No Is patient interested in fertility information? NA Does patient need any prescription refills? No Does patient have an advanced directive in place? Yes, copies are in [facility] documented in this encounter [facility] 04-29-2022 History of Present illness Narrative [facility] Hematologic Oncology and Blood disorders Progress Note (Elements copied from my note dated 12/14/2021, have been reviewed and updated where appropriate, and all reflect current assessment and medical decision making during today's encounter, April 29, 2022) PATIENT NAME: Le Toussaint DATE OF : 1970 ATTENDING STAFF: Fanta Wiggins D.O. 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 TTEs unremarkable 10/2012, 07/2015, ECGs normal 09/2012, 09/2014,05/2015, NT-pro-BNP and trop T so far always WNL HISTORY AND TREATMENT SUMMARY: 09/13/2012 - 03/07/2013: Diflunisal 500mg BID Side effects: Occasional upset stomach if she takes on empty stomach Best response: Complete resolution of numbness/tingling and hand swelling Reason for D/C: Diagnostic trial to determine whether a transient inflammatory state may have caused her symptoms 02/07/19 - 09/2020: Patisiran 0.3mg/kg/dose IV Q3 weeks Reason for D/C: stopped due to allergic reactions (hives, throat swelling) 09/2020 - Present: Off treatment INTERVAL HISTORY: Ms Toussaint is here today for follow up. She has been on the Dolobid and says that the neuropathy that she had been having is now completely resolved. She feels well. No fevers or infections. Good urine output. No LH or dizziness. No chest pain or palpitations. REVIEW OF SYSTEMS: 10 pt ROS reviewed and negative except as outlined above. ALLERGIES: ALLERGIES Allergen Reactions Amoxicillin Other: See Comments Unable to swallow Penicillins Other: See Comments Swelling of throat MEDICATIONS: Medications were reviewed and updated. Current Outpatient Medications Medication Sig diflunisal (DOLOBID) 500 mg tab TAKE 1 TABLET BY MOUTH EVERY OTHER DAY. TAKE IN THE MORNING WITH FOOD. gabapentin (NEURONTIN) 100 mg capsule TAKE 1 CAPSULE BY MOUTH THREE TIMES DAILY FOR 30 DAYS. SUMAtriptan (IMITREX) 100 mg tablet TAKE 1 TABLET BY MOUTH EVERY DAY NEEDED magnesium oxide (MAG-OX) 400 mg (241.3 mg magnesium) tablet TAKE 1 TABLET BY MOUTH EVERY DAY atorvastatin (LIPITOR) 20 mg tablet Take 20 mg by mouth once daily. cholecalciferol, Vitamin D3, (VITAMIN D3) 1,250 mcg (50,000 unit) cap capsule one time a week. meloxicam (MOBIC) 7.5 mg tablet as needed. valACYclovir (VALTREX) 500 mg tablet Take 1 tablet by mouth once daily. loratadine (CLARITIN) 10 mg tablet Take 1 tablet by mouth once daily. pantoprazole DR (PROTONIX) 20 mg tablet Take 1 tablet by mouth once daily. vitamin D3-folic acid 125 mcg (5,000 unit)-1 mg tab Take by mouth. VITAMIN A ORAL Take 1 capsule by mouth. 2400 per gelcap elderberry fruit (ELDERBERRY ORAL) Take 2 Doses by mouth once daily. Taking one gummy daily with Zinc losartan (COZAAR) 50 mg tablet Take 50 mg by mouth once daily. pravastatin (PRAVACHOL) 10 mg tablet Take 10 mg by mouth once daily. MULTIVITAMIN TAB Take one(1) tablet daily. topiramate (TOPAMAX) 100 mg tablet TAKE 1 TABLET BY MOUTH TWICE A DAY Current Facility-Administered Medications Medication Dose Route Frequency perflutren lipid microspheres 1.3 mL in NaCl (PF) 0.9% 10 mL injection (DEFINITY) INTRAVENOUS DIRECTED PRN sodium chloride 0.9 % (flush) 10 mL (BD POSIFLUSH) 10 mL INTRAVENOUS DIRECTED PRN PERTINENT PAST MEDICAL/SURG/SOC/FAM HISTORY: Dizziness Headaches History of genital herpes Uterine fibroids Menorrhagia Hypertension with related toxemia Iron deficiency anemia C secion Partial hysterectomy Benign breast cyst excised C scope and EGD Single 2 children social alcohol use Father: Hereditary amyloid with involvement of heart and peripheral nerves, [facility] PHYSICAL EXAM: 04/29/22 1502 BP: 136/90 Pulse: 70 Resp: 18 Temp: 36.5 C (97.7 F) TempSrc: Oral Weight: 105 kg (231 lb 7.7 oz) General appearance: NAD, well appearing woman Skin: No rashes or lesions Lungs: Lungs clear to auscultation. No wheezing, rhonchi, rales. Heart: regular rate Abdomen: soft and non tender without guarding or organomegaly Extremities: no edema, symmetric LE; R volar wrist ttp without deformity DATA REVIEW: I personally reviewed the patient's data. Troponin T Date Value Ref Range Status 11/19/2021 <0.010 0.000 - 0.029 ng/mL Final NT Pro BNP Date Value Ref Range Status 11/19/2021 91 <125 pg/mL Final Glucose (mg/dL) Date Value 04/28/2022 128 05/11/2021 102 Potassium (mmol/L) Date Value 04/28/2022 4.0 05/11/2021 4.0 Sodium (mmol/L) Date Value 04/28/2022 140 05/11/2021 143 Chloride (mmol/L) Date Value 04/28/2022 102 05/11/2021 106 CO2 (mmol/L) Date Value 04/28/2022 29 05/11/2021 25 Creatinine (mg/dL) Date Value 04/28/2022 0.84 05/11/2021 0.87 BUN (mg/dL) Date Value 04/28/2022 9 05/11/2021 16 Anion Gap (mmol/L) Date Value 04/28/2022 9 05/11/2021 12 Calcium (mg/dL) Date Value 05/11/2021 9.7 Calcium, Total (mg/dL) Date Value 04/28/2022 9.4 Protein, Total (g/dL) Date Value 04/28/2022 7.1 05/11/2021 7.7 Albumin (g/dL) Date Value 04/28/2022 4.4 05/11/2021 4.6 Bilirubin, Total (mg/dL) Date Value 04/28/2022 0.5 05/11/2021 0.5 Alkaline Phosphatase (U/L) Date Value 04/28/2022 114 05/11/2021 92 AST (U/L) Date Value 04/28/2022 23 05/11/2021 19 ALT (U/L) Date Value 04/28/2022 17 05/11/2021 14 Hemoglobin (g/dL) Date Value 04/28/2022 13.5 05/11/2021 14.9 Hematocrit (%) Date Value 04/28/2022 40.7 05/11/2021 45.1 WBC (k/uL) Date Value 04/28/2022 9.99 05/11/2021 8.82 Vitamin A level pending ASSESSMENT/PLAN: 51 year old female with hereditary systemic amyloidosis with [id number] transthyretin mutation. There has been no definite evidence for significant amyloid deposition in her heart including on her repeat TTE obtained 02/12/19. She had been off treatment since 09/2020 due to allergic reaction to patisiran, which may be due to the PEG component as the active component is an siRNA. 1) hereditary systemic amyloidosis with [id number] transthyretin mutation -Symptoms appear to be recurring -Labwork stable -Repeat TTE stable -Continue diflunisal 500 mg PO every other day -Schedule appointment to see Dr. Salinas -Labs monthly -RTC in 3 months See me in follow up in 3 months. DO Fanta Adames D.O. [employer] [facility] Hematologic Oncology & Blood Disorders P. [phone] F. [phone] documented in this encounter [facility] 03-30-2022 Note HNO ID: [id number] Author: Miky Salinas MD Service: ? Author Type: Physician Type: Progress Notes Filed: 03/30/2022 6:37 PM Note Text: Neurology Outpatient Clinic History and Physical DATE: March 30, 2022 LAST VISIT: May 22, 2019 FIRST VISIT: December 2017 w/ Dr. Liat Reyes, General Neurology resident Seen prior to that by Dr. Matt Gurrola Reason for Evaluation: Familial Amyloidosis Valene 122lle transthyretin mutation INTERIM HX: After being started on patisiran on February 07, 2019, coordinated by Dr. Wiggins. Most recent was approx May 01, 2019. Getting infusion q 3 wks. Has had some infusion reaction usually at very end of txt. She then opted to stop this due to concern for the reaction. Would have hives. Sense of difficulty breathing. A sense of heat in the ears. Restarted diflunisal at her last appt w/ Dr. Wiggins at a dose of 500 mg every other day. She tolerated this ok w/ use of pantoprazole and ranitiidine, taking med w/ food. She is not really noticing much in the way of sensory change now. Did note some prior to patisiran injection. This seemed to help. Now may notice trouble 3-4 times per month. Mainly now some numbness in her feet. Hands are OK. Takes Mobic via PCP for some occasional back stiffness and this is helpful. Last saw cardiology about 8 yrs ago. Advised to not see cardiology again until around age 61, due to anticipated last expression of this condition in terms of heart function. ANS Pertinent history and ROS: No change in bowel habit, no diarrhea, no constipation, Some nausea after eating - ? due to lactose, No vomiting No change urinary habit, no incontinence, no retention or incomplete bladder emptying, no urinary hesitancy or urgency No Heat intolerance No change in sweating. 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 She came today via [employer]. Older daughter needed to take younger daughter to school. Took diflunisal in 2012. Seems she had ASEs then, better tolerated now. INITIAL HPI: Ms. 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 She was last seen in on November [address] Darlene Gurrola. Neurologically, she reports transient symptoms of numbness/tingling of her bilateral hands and feet (sometimes moving up the legs just below the knees). At the time of initial presentation she also complained of dizziness and swelling of the hands and feet, which have since resolved. She was initially evaluated for amyloidosis in 2012, shortly after her father was diagnosed in the setting of congestive heart failure. In addition to Neurology, she is also followed by Dr. Wiggins in Hematology and Cardiology. Her workup to date has included genetic testing, two EMG studies (showing abnormal sensory response), fat pad biopsy (negative for amyloid), and skin biopsy (September 2015 with mild SFN- non length dependent). At the time of initial diagnosis she was started on diflusinal for 6 months, however this was stopped by her crossing watchman. Today, Ms. Toussaint is feeling well. She does continue to experience transient numbness/tingling, lasting a few hours to a few days, and occasionally remitting for a month at a time. The tingling is mostly in the hands and bilateral feet. The tingling sometimes moves upwards to the knee, and seems to worsen when she sits for a long period of time. She denies autonomic symptoms such as dizziness with changes in position, abnormal sweating or urinary complaints. Her blood pressure has been elevated on her more recent PCP visits,and she is currently trying to improve this with diet and exercise. In addition to the numbness, Ms. Toussaint also suffers from migraine headaches 2-3 times per week for which she is on Topamax. 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 cholecalciferol, Vitamin D3, (VITAMIN D3) 1,250 mcg (50,000 unit) cap capsule one time a week. meloxicam (MOBIC) 7.5 mg tablet as needed. magnesium oxide (MAG-OX) (more content not included)... [facility] [place] 03-30-2022 History of Present illness Narrative Images from the original note were not included. Neurology Outpatient Clinic History and Physical DATE: March 30, 2022 LAST VISIT: May 22, 2019 FIRST VISIT: December 2017 w/ Dr. Liat Reyes, General Neurology resident Seen prior to that by Dr. Matt Gurrola Reason for Evaluation: Familial Amyloidosis Valene 122lle transthyretin mutation INTERIM HX: After being started on patisiran on February 07, 2019, coordinated by Dr. Wiggins. Most recent was approx May 01, 2019. Getting infusion q 3 wks. Has had some infusion reaction usually at very end of txt. She then opted to stop this due to concern for the reaction. Would have hives. Sense of difficulty breathing. A sense of heat in the ears. Restarted diflunisal at her last appt w/ Dr. Wiggins at a dose of 500 mg every other day. She tolerated this ok w/ use of pantoprazole and ranitiidine, taking med w/ food. She is not really noticing much in the way of sensory change now. Did note some prior to patisiran injection. This seemed to help. Now may notice trouble 3-4 times per month. Mainly now some numbness in her feet. Hands are OK. Takes Mobic via PCP for some occasional back stiffness and this is helpful. Last saw cardiology about 8 yrs ago. Advised to not see cardiology again until around age 61, due to anticipated last expression of this condition in terms of heart function. ANS Pertinent history and ROS: No change in bowel habit, no diarrhea, no constipation, Some nausea after eating - ? due to lactose, No vomiting No change urinary habit, no incontinence, no retention or incomplete bladder emptying, no urinary hesitancy or urgency No Heat intolerance No change in sweating. 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 She came today via [employer]. Older daughter needed to take younger daughter to school. Took diflunisal in 2012. Seems she had ASEs then, better tolerated now. INITIAL HPI: Ms. 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 She was last seen in on November [address] Darlene Gurrola. Neurologically, she reports transient symptoms of numbness/tingling of her bilateral hands and feet (sometimes moving up the legs just below the knees). At the time of initial presentation she also complained of dizziness and swelling of the hands and feet, which have since resolved. She was initially evaluated for amyloidosis in 2012, shortly after her father was diagnosed in the setting of congestive heart failure. In addition to Neurology, she is also followed by Dr. Wiggins in Hematology and Cardiology. Her workup to date has included genetic testing, two EMG studies (showing abnormal sensory response), fat pad biopsy (negative for amyloid), and skin biopsy (September 2015 with mild SFN- non length dependent). At the time of initial diagnosis she was started on diflusinal for 6 months, however this was stopped by her crossing watchman. Today, Ms. Toussaint is feeling well. She does continue to experience transient numbness/tingling, lasting a few hours to a few days, and occasionally remitting for a month at a time. The tingling is mostly in the hands and bilateral feet. The tingling sometimes moves upwards to the knee, and seems to worsen when she sits for a long period of time. She denies autonomic symptoms such as dizziness with changes in position, abnormal sweating or urinary complaints. Her blood pressure has been elevated on her more recent PCP visits,and she is currently trying to improve this with diet and exercise. In addition to the numbness, Ms. Toussaint also suffers from migraine headaches 2-3 times per week for which she is on Topamax. 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 cholecalciferol, Vitamin D3, (VITAMIN D3) 1,250 mcg (50,000 unit) cap capsule one time a week. meloxicam (MOBIC) 7.5 mg tablet as needed. magnesium oxide (MAG-OX) 400 mg (241.3 mg magnesium) tablet Take 1 tablet by mouth once daily. valACYclovir (VALTREX) 500 mg tablet Take 1 tablet by mouth once daily. loratadine (CLARITIN) 10 mg tablet Take 1 tablet by mouth once daily. pantoprazole DR (PROTONIX) 20 mg tablet Take 1 tablet by mouth once daily. diflunisal (DOLOBID) 500 mg tab Take 1 tablet by mouth every other day. Take in the morning with food. SUMAtriptan (IMITREX) 100 mg tablet TAKE 1 TABLET BY MOUTH EVERY DAY NEEDED (Patient taking differently: 25 mg as needed.) elderberry fruit (ELDERBERRY ORAL) Take 2 Doses by mouth once daily. Taking one gummy daily with Zinc losartan (COZAAR) 50 mg tablet Take 50 mg by mouth once daily. pravastatin (PRAVACHOL) 10 mg tablet Take 10 mg by mouth once daily. MULTIVITAMIN TAB Take one(1) tablet daily. gabapentin (NEURONTIN) 100 mg capsule Take 1 capsule by mouth three times daily for 30 days. topiramate (TOPAMAX) 100 mg tablet TAKE 1 TABLET BY MOUTH TWICE A DAY vitamin D3-folic acid 125 mcg (5,000 unit)-1 mg tab Take by mouth. VITAMIN A ORAL Take 1 capsule by mouth. 2400 per gelcap (Patient not taking: Reported on 03/30/2022) Current Facility-Administered Medications Medication Dose Route Frequency perflutren lipid microspheres 1.3 mL in NaCl (PF) 0.9% 10 mL injection (DEFINITY) INTRAVENOUS DIRECTED PRN sodium chloride 0.9 % (flush) 10 mL (BD POSIFLUSH) 10 mL INTRAVENOUS DIRECTED PRN MEDICAL HISTORY PAST MEDICAL HISTORY Diagnosis Date Dizziness Dysmenorrhea Dyspepsia 04/07/2017 Fibroid, uterine Genital herpes GERD (gastroesophageal reflux disease) Iron deficiency anemia Iron deficiency anemia, unspecified 12/03/2009 Menorrhagia Migraine toxemia /hypertension Unspecified intestinal malabsorption 12/03/2009 SURGICAL HISTORY PAST SURGICAL HISTORY Procedure Laterality Date DELIVERY ONLY x2 2000 and 2005 COLONOSCOPY FLX DX W/COLLJ SPEC WHEN PFRMD 02/18/16 Colonoscopy mac ESOPHAGOGASTRODUODENOSCOPY TRANSORAL DIAGNOSTIC 02/18/16 EGD mac EXC CYST/ABERRANT BREAST TISSUE OPEN 1/ LESION 1989 benign right EXT HYSTERECTOMY,W/PARTIAL VAGINECTO 2012 PAST SURGICAL HISTORY OF 2009 removal uterine fibroid vaginally SOCIAL HISTORY Social History Tobacco Use Smoking status: Never Smokeless tobacco: Never Substance Use Topics Alcohol use: Yes Comment: rarely Drug use: No FAMILY HISTORY FAMILY HISTORY Problem Relation Age of Onset Cancer Maternal Grandfather lung, occupation Diabetes Paternal Grandmother Hypertension Maternal Grandmother Diabetes Mother ALLERGIES ALLERGIES Allergen Reactions Amoxicillin Other: See Comments Unable to swallow Penicillins Other: See Comments Swelling of throat REVIEW OF SYSTEMS: GENERAL: no changes in sleep, appetite, no fever/chills, recent illness HEENT: No problems with hearing or vision, no nose bleeds or other nasal problems; frequent migraines 2-3 times per week. Sometimes takes a little while for her eyes to clear up in the morning (few minutes) NECK: Negative for stiffness, lumps or significant neck swelling RESPIRATORY: Negative for cough, wheezing or respiratory distress CARDIOVASCULAR: Negative for chest pain, syncope, lightheadedness or heart racing; occasional chest pain at rest (left side) GI: No nausea, vomiting, or diarrhea; acid reflux : No history of dysuria, frequency or incontinence MUSCULOSKELETAL: left 'sciatic nerve' flair (began after having second child; went to physical therapy which helped) SKIN: Negative for lesions, rash, and itching PHYSICAL EXAM: BP 144/88 Pulse 62 Resp 18 Ht 5' 7 (1.70m) Wt 231 lb (104.8kg) LMP 09/12/2012 BMI 36.17 kg/(m^2). General appearance: Skin: skin color, texture, turgor normal, no rashes or lesions HEENT: normocephalic, atraumatic, mucous membranes moist Lungs: lungs clear to auscultation, no wheezing or rhonchi CVS: Regular rate and rhythm without murmur. Abdomen: not examined Extremities: Extremities normal. No deformities, edema, or skin discoloration. Good capillary refill. Peripheral pulses: Normal Neurological exam: Mental Status: Alert, oriented to person, place and time and follows commands. Reliable historian. Speech was normal with no evidence of word finding difficulties Cranial Nerves: PERRL, eyes conjugate without preference, visual mcdowell intact to confrontation, EOM intact with no nystagmus , smooth saccades, facial sensation intact to light touch and pinprick, face symmetric without ptosis, hearing intact to finger rub bilaterally, palate elevates to phonation, tongue midline Non-Dilated Fundoscopic Examination: Deferred Examination Motor Exam: Muscle bulk: Normal b/l Muscle Tone: UE drift: Absent b/l MOTOR STRENGTH: RIGHT LEFT Shoulder abduction 5 5 Shoulder adduction 5 5 Arm flexion 5 5 Arm extension 5 5 Wrist flexion 5 5 Wrist extension 5 5 Finger abduction 5 5 Finger flexion 5 5 Finger extension 5 5 Hand grasp 5 5 Hip flexion 5 5 Knee flexion 5 5 Knee extension 5 5 Plantar flexion 5 5 Dorsiflexion 5 5 Reflexes: RIGHT LEFT Biceps 2+ 1+ Brachioradialis 2+ 2+ Triceps 2+ 2+ Patella 1+ 1+ Achilles 2+ 2+ Pathologic Reflexes: Babinski mute mute Deras absent absent Sensation: Pinprick-intact throughout at fingers and toes Vibration- intact at hands (> 20 secs lauren) at feet (approx 15-20 secs lauren, slightly variable Joint Proprioception intact Light Touch intact throughout Coordination: Fine finger movement preserved bilaterally Rapid palm alternation preserved bilaterally Finger to nose preserved bilaterally Heel to lund preserved bilaterally Gait: Unassisted, stable. Normal stride length, base, and normal arm swing. Able to do tandem, heel, and toe walk without difficulty. Romberg's (negative) NIS - approx 3 mild changes in reflexes only. o/w intact. NEW DATA or RESULTS: EMG/NCS from May 22, 2019 The last electrodiagnostic study performed on August 11, 2015 is available for comparison. Extensive electrodiagnostic examination of the left lower and upper extremities reveals minor and scattered abnormalities. When compared to the last study, the following are observed: 1. The left medial plantar mixed response is now absent. The remaining nerve conduction studies all show robust responses, without significant interval changes. 2. Sparse chronic axonal loss changes are seen in the abductor pollicis brevis, extensor indicis propius and tibialis posterios muscles. No active motor axonal loss changes are observed. These findings may indicate a minimal interval progression of a polyneuropathy associated with the patient's known amyloid mutation. Mild cervical (C8/T1) or lumbar (L5) radiculopathies can not be totally excluded. Previously brought XR reports from [facility] C-spine dated 01/02/19 - mild spondylosis, no acute fracture or other significant bony pathology. X-ray lumbar spine dated 01/02/19 - mild scoliosis and degn changes, no acute fracture of significant bony pathology. LABS/DATA: CBC, Coags, BMP, Mg, Phos Liver Function, Amylase, & Lipase WBC (k/uL) Date Value 02/08/2022 7.89 01/04/2022 8.35 11/19/2021 7.10 05/11/2021 8.82 06/30/2020 8.71 05/01/2020 9.03 12/03/2019 11.77 09/06/2019 8.85 Creatinine (mg/dL) Date Value 02/08/2022 0.94 01/04/2022 0.91 11/19/2021 0.86 05/11/2021 0.87 06/30/2020 1.09 05/01/2020 1.08 09/06/2019 0.97 04/27/2019 0.96 Lab Results Component Value Date NEUTP 74.6 10/14/2017 ABSNEUT 8.20 10/14/2017 LYMPHP 18.2 10/14/2017 ABSLYMPH 2.01 10/14/2017 ABSMONO 0.73 10/14/2017 EODINP 0.1 10/14/2017 ABSEOSIN <0.03 10/14/2017 BASOP 0.5 10/14/2017 ABSBASO 0.05 10/14/2017 Lab Results Component Value Date PLT 358 10/14/2017 HB 15.0 10/14/2017 HCT 44.6 10/14/2017 ALB 4.9 10/14/2017 CA 9.4 10/14/2017 TBILI 0.4 10/14/2017 ALKPHOS 116 10/14/2017 AST 24 10/14/2017 GLUC 112 10/14/2017 BUN 14 10/14/2017 NA 141 10/14/2017 K 3.7 10/14/2017 CHLOR 104 10/14/2017 CO2 23 10/14/2017 ANION 14 10/14/2017 ALT 25 10/14/2017 WSR (mm/hr) Date Value 07/03/2012 4 CRP (mg/dL) Date Value 07/03/2012 0.1 No results found for: VANCOPRE, VANCORA IMAGING: None ASSESSMENT / PLAN: Familial Amyloidosis w/ PN - Valene 122lle transthyretin mutation Compared to prior exam (when allowing for variation b/t examiners) things are stable to possibly mildly improved. Symptom lawson she is rather stable. Had adverse side effects w / patisiran infusion. Reviewed vutrisiran. Her degree of impairment is so modest now on exam and given overall stability since last assessment I do not think she would likely qualify for and perhaps get that much benefit currently from use of the treatment. I suspect adverse side effects she experienced with patisiran was related to the lipid component used for infusion. I would not consider inotersen here given propensity for adverse side effects w/ this med and her relative clinical stability and the rather intense drug monitoring with frequent lab and urine studies required for this agent. She is tolerating diflunisal now with use of H2 odilon and PPI. It seems reasonable to continue this. Follow-up in 1 year. Sooner if needed. Miky Salinas MD Time spent - 40 minutes CC: [place]: [place] [id number] [address] [facility] [id number] PCP: Nat RomeSALVADOR CNP ([facility]) [address] [place] [address] Patient documented in this encounter [facility] 12-14-2021 Note HNO ID: [id number] Author: Fanta Wiggins, DO Service: ? Author Type: Physician Type: Progress Notes Filed: 12/15/2021 3:43 PM Note Text: [facility] Hematologic Oncology and Blood disorders Progress Note (Elements copied from Dr. Wiggins' note dated , have been reviewed and updated where appropriate, and all reflect current assessment and medical decision making during today's encounter, December 14, 2021) PATIENT NAME: Le Toussaint DATE OF : 1970 ATTENDING STAFF: Fanta Wiggins D.O. 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 TTEs unremarkable 10/2012, 07/2015, ECGs normal 09/2012, 09/2014,05/2015, NT-pro-BNP and trop T so far always WNL HISTORY AND TREATMENT SUMMARY: 09/13/2012 - 03/07/2013: Diflunisal 500mg BID Side effects: Occasional upset stomach if she takes on empty stomach Best response: Complete resolution of numbness/tingling and hand swelling Reason for D/C: Diagnostic trial to determine whether a transient inflammatory state may have caused her symptoms 02/07/19 - 09/2020: Patisiran 0.3mg/kg/dose IV Q3 weeks Reason for D/C: stopped due to allergic reactions (hives, throat swelling) 09/2020 - Present: Off treatment INTERVAL HISTORY: Ms Toussaint is here today for follow up. Stable right wrist pain/numbness and numbness along the medial aspect of her R great toe. XRay wrist done in [place] normal. Scheduled for EMG per PCP. REVIEW OF SYSTEMS: 10 pt ROS reviewed and negative except as outlined above. ALLERGIES: ALLERGIES Allergen Reactions Amoxicillin Other: See Comments Unable to swallow Penicillins Other: See Comments Swelling of throat MEDICATIONS: Medications were reviewed and updated. Current Outpatient Medications Medication Sig SUMAtriptan (IMITREX) 100 mg tablet TAKE 1 TABLET BY MOUTH EVERY DAY NEEDED (Patient taking differently: 50 mg. Pt to verify dose - may be 25mg) diflunisal (DOLOBID) 500 mg tab Take 1 tablet by mouth every other day. Take in the morning with food. magnesium oxide (MAG-OX) 400 mg (241.3 mg magnesium) tablet TAKE 1 TABLET BY MOUTH EVERY DAY loratadine (CLARITIN) 10 mg tablet TAKE 1 TABLET BY MOUTH EVERY DAY topiramate (TOPAMAX) 100 mg tablet TAKE 1 TABLET BY MOUTH TWICE A DAY (Patient not taking: Reported on 12/14/2021) vitamin D3-folic acid 125 mcg (5,000 unit)-1 mg tab Take by mouth. gabapentin (NEURONTIN) 100 mg capsule TAKE 1 CAPSULE BY MOUTH THREE TIMES DAILY FOR 30 DAYS. VITAMIN A ORAL Take 1 capsule by mouth. [address] (PROTONIX) 20 mg tablet TAKE 1 TABLET BY MOUTH EVERY DAY valACYclovir (VALTREX) 500 mg tablet Take 1 tablet by mouth once daily. elderberry fruit (ELDERBERRY ORAL) Take 2 Doses by mouth once daily. Taking one gummy daily with Zinc losartan (COZAAR) 25 mg tablet Take 25 mg by mouth once daily. pravastatin (PRAVACHOL) 10 mg tablet Take 10 mg by mouth once daily. MULTIVITAMIN TAB Take one(1) tablet daily. Current Facility-Administered Medications Medication Dose Route Frequency perflutren lipid microspheres 1.3 mL in NaCl (PF) 0.9% 10 mL injection (DEFINITY) INTRAVENOUS DIRECTED PRN sodium chloride 0.9 % (flush) 10 mL (BD POSIFLUSH) 10 mL INTRAVENOUS DIRECTED PRN PERTINENT PAST MEDICAL/SURG/SOC/FAM HISTORY: Dizziness Headaches History of genital herpes Uterine fibroids Menorrhagia Hypertension with related toxemia Iron deficiency anemia C secion Partial hysterectomy Benign breast cyst excised C scope and EGD Single 2 children social alcohol use Father: Hereditary amyloid with involvement of heart and peripheral nerves, [facility] PHYSICAL EXAM: 12/14/21 0938 BP: 141/87 Pulse: 67 Resp: 18 Temp: 36.9 ?C (98.4 ?F) TempSrc: Oral Weight: 100.1 kg (220 lb 10.9 oz) General appearance: NAD, well appearing woman Skin: No rashes or lesions Lungs: Lungs clear to auscultation. No wheezing, rhonchi, rales. Heart: regular rate Abdomen: soft and non tender without guarding or organomegaly Extremities: no edema, symmetric LE; R volar wrist ttp without deformity DATA REVIEW: I personally reviewed the patient's data. Troponin T Date Value Ref Range Status 11/19/2021 <0.010 0.000 - 0.029 ng/mL Final NT Pro BNP Date Value Ref Range Status 11/19/2021 91 <125 pg/mL Final Glucose (mg/dL) Date Value 11/19/2021 104 05/11/2021 102 Potassium (mmol/L) Date V (more content not included)... [facility] 12-14-2021 Nurse Note Additional intake questions: Has the patient had fever, nausea, vomiting, diarrhea, constipation, fatigue for > 1 week? Yes, diarrhea ( 2 times in last 24 hours) and Provider Notified Does the patient have a decreased appetite? No Does patient want to see a Wax Pattern Assembler? No (yes to any of above refer patient to schedulers for dietitian appointment) ) Does patient have any new or increased numbness or tingling of extremities? Yes, right big toe is numb Is patient interested in fertility information? No Does patient need any prescription refills? No Does patient have an advanced directive in place? Yes, copies are in [facility] Electronically Signed By: Porsche Mcgowan LPN documented in this encounter [facility] 12-14-2021 History of Present illness Narrative [facility] Hematologic Oncology and Blood disorders Progress Note (Elements copied from Dr. Wiggins' note dated , have been reviewed and updated where appropriate, and all reflect current assessment and medical decision making during today's encounter, December 14, 2021) PATIENT NAME: Le Toussaint DATE OF : 1970 ATTENDING STAFF: Fanta Wiggins D.O. 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 TTEs unremarkable 10/2012, 07/2015, ECGs normal 09/2012, 09/2014,05/2015, NT-pro-BNP and trop T so far always WNL HISTORY AND TREATMENT SUMMARY: 09/13/2012 - 03/07/2013: Diflunisal 500mg BID Side effects: Occasional upset stomach if she takes on empty stomach Best response: Complete resolution of numbness/tingling and hand swelling Reason for D/C: Diagnostic trial to determine whether a transient inflammatory state may have caused her symptoms 02/07/19 - 09/2020: Patisiran 0.3mg/kg/dose IV Q3 weeks Reason for D/C: stopped due to allergic reactions (hives, throat swelling) 09/2020 - Present: Off treatment INTERVAL HISTORY: Ms Toussaint is here today for follow up. Stable right wrist pain/numbness and numbness along the medial aspect of her R great toe. XRay wrist done in [place] normal. Scheduled for EMG per PCP. REVIEW OF SYSTEMS: 10 pt ROS reviewed and negative except as outlined above. ALLERGIES: ALLERGIES Allergen Reactions Amoxicillin Other: See Comments Unable to swallow Penicillins Other: See Comments Swelling of throat MEDICATIONS: Medications were reviewed and updated. Current Outpatient Medications Medication Sig SUMAtriptan (IMITREX) 100 mg tablet TAKE 1 TABLET BY MOUTH EVERY DAY NEEDED (Patient taking differently: 50 mg. Pt to verify dose - may be 25mg) diflunisal (DOLOBID) 500 mg tab Take 1 tablet by mouth every other day. Take in the morning with food. magnesium oxide (MAG-OX) 400 mg (241.3 mg magnesium) tablet TAKE 1 TABLET BY MOUTH EVERY DAY loratadine (CLARITIN) 10 mg tablet TAKE 1 TABLET BY MOUTH EVERY DAY topiramate (TOPAMAX) 100 mg tablet TAKE 1 TABLET BY MOUTH TWICE A DAY (Patient not taking: Reported on 12/14/2021) vitamin D3-folic acid 125 mcg (5,000 unit)-1 mg tab Take by mouth. gabapentin (NEURONTIN) 100 mg capsule TAKE 1 CAPSULE BY MOUTH THREE TIMES DAILY FOR 30 DAYS. VITAMIN A ORAL Take 1 capsule by mouth. [address] (PROTONIX) 20 mg tablet TAKE 1 TABLET BY MOUTH EVERY DAY valACYclovir (VALTREX) 500 mg tablet Take 1 tablet by mouth once daily. elderberry fruit (ELDERBERRY ORAL) Take 2 Doses by mouth once daily. Taking one gummy daily with Zinc losartan (COZAAR) 25 mg tablet Take 25 mg by mouth once daily. pravastatin (PRAVACHOL) 10 mg tablet Take 10 mg by mouth once daily. MULTIVITAMIN TAB Take one(1) tablet daily. Current Facility-Administered Medications Medication Dose Route Frequency perflutren lipid microspheres 1.3 mL in NaCl (PF) 0.9% 10 mL injection (DEFINITY) INTRAVENOUS DIRECTED PRN sodium chloride 0.9 % (flush) 10 mL (BD POSIFLUSH) 10 mL INTRAVENOUS DIRECTED PRN PERTINENT PAST MEDICAL/SURG/SOC/FAM HISTORY: Dizziness Headaches History of genital herpes Uterine fibroids Menorrhagia Hypertension with related toxemia Iron deficiency anemia C secion Partial hysterectomy Benign breast cyst excised C scope and EGD Single 2 children social alcohol use Father: Hereditary amyloid with involvement of heart and peripheral nerves, [facility] PHYSICAL EXAM: 12/14/21 0938 BP: 141/87 Pulse: 67 Resp: 18 Temp: 36.9 C (98.4 F) TempSrc: Oral Weight: 100.1 kg (220 lb 10.9 oz) General appearance: NAD, well appearing woman Skin: No rashes or lesions Lungs: Lungs clear to auscultation. No wheezing, rhonchi, rales. Heart: regular rate Abdomen: soft and non tender without guarding or organomegaly Extremities: no edema, symmetric LE; R volar wrist ttp without deformity DATA REVIEW: I personally reviewed the patient's data. Troponin T Date Value Ref Range Status 11/19/2021 <0.010 0.000 - 0.029 ng/mL Final NT Pro BNP Date Value Ref Range Status 11/19/2021 91 <125 pg/mL Final Glucose (mg/dL) Date Value 11/19/2021 104 05/11/2021 102 Potassium (mmol/L) Date Value 11/19/2021 4.0 05/11/2021 4.0 Sodium (mmol/L) Date Value 11/19/2021 140 05/11/2021 143 Chloride (mmol/L) Date Value 11/19/2021 106 05/11/2021 106 CO2 (mmol/L) Date Value 11/19/2021 21 05/11/2021 25 Creatinine (mg/dL) Date Value 11/19/2021 0.86 05/11/2021 0.87 BUN (mg/dL) Date Value 11/19/2021 10 05/11/2021 16 Anion Gap (mmol/L) Date Value 11/19/2021 13 05/11/2021 12 Calcium (mg/dL) Date Value 05/11/2021 9.7 Calcium, Total (mg/dL) Date Value 11/19/2021 8.5 Protein, Total (g/dL) Date Value 11/19/2021 7.3 05/11/2021 7.7 Albumin (g/dL) Date Value 11/19/2021 4.6 05/11/2021 4.6 Bilirubin, Total (mg/dL) Date Value 11/19/2021 0.5 05/11/2021 0.5 Alkaline Phosphatase (U/L) Date Value 11/19/2021 87 05/11/2021 92 AST (U/L) Date Value 11/19/2021 19 05/11/2021 19 ALT (U/L) Date Value 11/19/2021 16 05/11/2021 14 Hemoglobin (g/dL) Date Value 11/19/2021 14.5 05/11/2021 14.9 Hematocrit (%) Date Value 11/19/2021 44.0 05/11/2021 45.1 WBC (k/uL) Date Value 11/19/2021 7.10 05/11/2021 8.82 Vitamin A level pending ASSESSMENT/PLAN: 50 year old female with 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 There has been no definite evidence for significant amyloid deposition in her heart including on her repeat TTE obtained 02/12/19. She has been off treatment since 09/2020 due to allergic reaction to patisiran, which may be due to the PEG component as the active component is an siRNA. Unfortunately, it appears she is having symptoms suggestive of recurrence. Other treatment options are potentially Vutisiran SC Q3 months (not on formulary but may be available soon) versus Inotersen SC on M, W, F first week of therapy and then weekly after that. Dr Salinas spoke to her about this in past but she is very reticent to consider this in light of potential side effects of thrombocytopenia and effects on the kidneys. 1) hereditary systemic amyloidosis with [id number] transthyretin mutation -Symptoms appear to be recurring -Labwork stable -Repeat TTE stable -Restart diflunisal 500 mg PO every other day -Schedule appointment to see Dr. Salinas -Labs monthly -RTC in 3 months Seen and discussed with Dr. Wiggins. Ying Vicente MD PGY-6 Hematology and Oncology Fellow Pager: [phone] December 14, 2021 10:[address] [facility] STAFF PHYSICIAN NOTE OF PERSONAL INVOLVEMENT IN CARE I have reviewed the history and physical examination and progress note obtained and documented by the fellow and I personally participated in the freed components. I have discussed the case and management of the patient's care. The following comments revise or confirm relevant freed components of their note. Patient seen with Dr Vicente and agree with findings, impression and recommendations. Pt to follow up with Dr Salinas and she will call for an appt but in interim given recurrence of neuropathic symptoms and in light of a previous response to diflunisal will plan to restart diflunisal but at metronomic dosing of 500mg every other day. Other recommendations as above. Agree. Smart set placed and pt will call scheduling to make an appt for 3 months. DO Fanta Adames D.O. molder fitting Hematologic Oncology & Blood Disorders P. [phone] F. [phone] documented in this encounter [facility] 11-19-2021 Note HNO ID: [id number] Author: Fanta Wiggins DO Service: ? Author Type: Physician Type: Progress Notes Filed: 11/23/2021 12:55 PM Note Text: [facility] Hematologic Oncology and Blood disorders Progress Note (Elements copied from Dr. Wiggins' note dated 05/11/21, have been reviewed and updated where appropriate, and all reflect current assessment and medical decision making during today's encounter, November 19, 2021) PATIENT NAME: Le Toussaint DATE OF : 1970 ATTENDING STAFF: Fanta Wiggins D.O. 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 TTEs unremarkable 10/2012, 07/2015, ECGs normal 09/2012, 09/2014,05/2015, NT-pro-BNP and trop T so far always WNL HISTORY AND TREATMENT SUMMARY: 09/13/2012 - 03/07/2013: Diflunisal 500mg BID Side effects: Occasional upset stomach if she takes on empty stomach Best response: Complete resolution of numbness/tingling and hand swelling Reason for D/C: Diagnostic trial to determine whether a transient inflammatory state may have caused her symptoms 02/07/19 - 09/2020: Patisiran 0.3mg/kg/dose IV Q3 weeks Reason for D/C: stopped due to allergic reactions (hives, throat swelling) 09/2020 - Present: Off treatment, symptoms may have begun recurring 3-4 months prior to 11/19/2021 visit INTERVAL HISTORY: Ms Toussaint is here today for follow up. She reports feeling as if her amyloidosis symptoms are recurring. Specifically, she has been having increasing right wrist pain/numbness and numbness along the medial aspect of her R great toe. She also reports increasing fatigue, dizziness, and headaches, all of which have been occurring over the past 3-4 months. REVIEW OF SYSTEMS: 10 pt ROS reviewed and negative except as outlined above. ALLERGIES: ALLERGIES Allergen Reactions Amoxicillin Other: See Comments Unable to swallow Penicillins Other: See Comments Swelling of throat MEDICATIONS: Medications were reviewed and updated. Current Outpatient Medications Medication Sig magnesium oxide (MAG-OX) 400 mg (241.3 mg magnesium) tablet TAKE 1 TABLET BY MOUTH EVERY DAY loratadine (CLARITIN) 10 mg tablet TAKE 1 TABLET BY MOUTH EVERY DAY topiramate (TOPAMAX) 100 mg tablet TAKE 1 TABLET BY MOUTH TWICE A DAY SUMAtriptan (IMITREX) 100 mg tablet TAKE 1 TABLET BY MOUTH EVERY DAY NEEDED vitamin D3-folic acid 125 mcg (5,000 unit)-1 mg tab Take by mouth. gabapentin (NEURONTIN) 100 mg capsule TAKE 1 CAPSULE BY MOUTH THREE TIMES DAILY FOR 30 DAYS. VITAMIN A ORAL Take 1 capsule by mouth. [address] (PROTONIX) 20 mg tablet TAKE 1 TABLET BY MOUTH EVERY DAY valACYclovir (VALTREX) 500 mg tablet Take 1 tablet by mouth once daily. elderberry fruit (ELDERBERRY ORAL) Take 2 Doses by mouth once daily. Taking one gummy daily with Zinc losartan (COZAAR) 25 mg tablet Take 25 mg by mouth once daily. pravastatin (PRAVACHOL) 10 mg tablet Take 10 mg by mouth once daily. MULTIVITAMIN TAB Take one(1) tablet daily. No current facility-administered medications for this visit. PERTINENT PAST MEDICAL/SURG/SOC/FAM HISTORY: Dizziness Headaches History of genital herpes Uterine fibroids Menorrhagia Hypertension with related toxemia Iron deficiency anemia C secion Partial hysterectomy Benign breast cyst excised C scope and EGD Single 2 children social alcohol use Father: Hereditary amyloid with involvement of heart and peripheral nerves, [facility] PHYSICAL EXAM: 11/19/21 1530 BP: 140/78 Pulse: 69 Resp: 18 Temp: 36.4 ?C (97.6 ?F) TempSrc: Temporal SpO2: 100% Weight: 98.8 kg (217 lb 14.4 oz) Height: 169.5 cm (5' 6.73 ) General appearance: NAD, well appearing woman Skin: No rashes or lesions Lungs: Lungs clear to auscultation. No wheezing, rhonchi, rales. Heart: regular rate Abdomen: soft and non tender without guarding or organomegaly Extremities: no edema, symmetric LE; R volar wrist ttp without deformity DATA REVIEW: I personally reviewed the patient's data. Troponin T Date Value Ref Range Status 11/19/2021 <0.010 0.000 - 0.029 ng/mL Final NT Pro BNP Date Value Ref Range Status 11/19/2021 91 <125 pg/mL Final Glucose (mg/dL) Date Value 11/19/2021 104 05/11/2021 102 Potassium (mmol/L) Date Value 11/19/2021 4.0 05/11/2021 4.0 Sodium (mmol/L) Date Value 11/19/2021 140 05/11/2021 143 Chloride (mmol/L) Date Value 11/19/2021 106 (more content not included)... [facility] 11-19-2021 History of Present illness Narrative [facility] Hematologic Oncology and Blood disorders Progress Note (Elements copied from Dr. Wiggins' note dated 05/11/21, have been reviewed and updated where appropriate, and all reflect current assessment and medical decision making during today's encounter, November 19, 2021) PATIENT NAME: Le Toussaint DATE OF : 1970 ATTENDING STAFF: Fanta Wiggins D.O. 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 TTEs unremarkable 10/2012, 07/2015, ECGs normal 09/2012, 09/2014,05/2015, NT-pro-BNP and trop T so far always WNL HISTORY AND TREATMENT SUMMARY: 09/13/2012 - 03/07/2013: Diflunisal 500mg BID Side effects: Occasional upset stomach if she takes on empty stomach Best response: Complete resolution of numbness/tingling and hand swelling Reason for D/C: Diagnostic trial to determine whether a transient inflammatory state may have caused her symptoms 02/07/19 - 09/2020: Patisiran 0.3mg/kg/dose IV Q3 weeks Reason for D/C: stopped due to allergic reactions (hives, throat swelling) 09/2020 - Present: Off treatment, symptoms may have begun recurring 3-4 months prior to 11/19/2021 visit INTERVAL HISTORY: Ms Toussaint is here today for follow up. She reports feeling as if her amyloidosis symptoms are recurring. Specifically, she has been having increasing right wrist pain/numbness and numbness along the medial aspect of her R great toe. She also reports increasing fatigue, dizziness, and headaches, all of which have been occurring over the past 3-4 months. REVIEW OF SYSTEMS: 10 pt ROS reviewed and negative except as outlined above. ALLERGIES: ALLERGIES Allergen Reactions Amoxicillin Other: See Comments Unable to swallow Penicillins Other: See Comments Swelling of throat MEDICATIONS: Medications were reviewed and updated. Current Outpatient Medications Medication Sig magnesium oxide (MAG-OX) 400 mg (241.3 mg magnesium) tablet TAKE 1 TABLET BY MOUTH EVERY DAY loratadine (CLARITIN) 10 mg tablet TAKE 1 TABLET BY MOUTH EVERY DAY topiramate (TOPAMAX) 100 mg tablet TAKE 1 TABLET BY MOUTH TWICE A DAY SUMAtriptan (IMITREX) 100 mg tablet TAKE 1 TABLET BY MOUTH EVERY DAY NEEDED vitamin D3-folic acid 125 mcg (5,000 unit)-1 mg tab Take by mouth. gabapentin (NEURONTIN) 100 mg capsule TAKE 1 CAPSULE BY MOUTH THREE TIMES DAILY FOR 30 DAYS. VITAMIN A ORAL Take 1 capsule by mouth. [address] (PROTONIX) 20 mg tablet TAKE 1 TABLET BY MOUTH EVERY DAY valACYclovir (VALTREX) 500 mg tablet Take 1 tablet by mouth once daily. elderberry fruit (ELDERBERRY ORAL) Take 2 Doses by mouth once daily. Taking one gummy daily with Zinc losartan (COZAAR) 25 mg tablet Take 25 mg by mouth once daily. pravastatin (PRAVACHOL) 10 mg tablet Take 10 mg by mouth once daily. MULTIVITAMIN TAB Take one(1) tablet daily. No current facility-administered medications for this visit. PERTINENT PAST MEDICAL/SURG/SOC/FAM HISTORY: Dizziness Headaches History of genital herpes Uterine fibroids Menorrhagia Hypertension with related toxemia Iron deficiency anemia C secion Partial hysterectomy Benign breast cyst excised C scope and EGD Single 2 children social alcohol use Father: Hereditary amyloid with involvement of heart and peripheral nerves, [facility] not [facility] PHYSICAL EXAM: 11/19/21 1530 BP: 140/78 Pulse: 69 Resp: 18 Temp: 36.4 C (97.6 F) TempSrc: Temporal SpO2: 100% Weight: 98.8 kg (217 lb 14.4 oz) Height: 169.5 cm (5' 6.73 ) General appearance: NAD, well appearing woman Skin: No rashes or lesions Lungs: Lungs clear to auscultation. No wheezing, rhonchi, rales. Heart: regular rate Abdomen: soft and non tender without guarding or organomegaly Extremities: no edema, symmetric LE; R volar wrist ttp without deformity DATA REVIEW: I personally reviewed the patient's data. Troponin T Date Value Ref Range Status 11/19/2021 <0.010 0.000 - 0.029 ng/mL Final NT Pro BNP Date Value Ref Range Status 11/19/2021 91 <125 pg/mL Final Glucose (mg/dL) Date Value 11/19/2021 104 05/11/2021 102 Potassium (mmol/L) Date Value 11/19/2021 4.0 05/11/2021 4.0 Sodium (mmol/L) Date Value 11/19/2021 140 05/11/2021 143 Chloride (mmol/L) Date Value 11/19/2021 106 05/11/2021 106 CO2 (mmol/L) Date Value 11/19/2021 21 05/11/2021 25 Creatinine (mg/dL) Date Value 11/19/2021 0.86 05/11/2021 0.87 BUN (mg/dL) Date Value 11/19/2021 10 05/11/2021 16 Anion Gap (mmol/L) Date Value 11/19/2021 13 05/11/2021 12 Calcium (mg/dL) Date Value 05/11/2021 9.7 Calcium, Total (mg/dL) Date Value 11/19/2021 8.5 Protein, Total (g/dL) Date Value 11/19/2021 7.3 05/11/2021 7.7 Albumin (g/dL) Date Value 11/19/2021 4.6 05/11/2021 4.6 Bilirubin, Total (mg/dL) Date Value 11/19/2021 0.5 05/11/2021 0.5 Alkaline Phosphatase (U/L) Date Value 11/19/2021 87 05/11/2021 92 AST (U/L) Date Value 11/19/2021 19 05/11/2021 19 ALT (U/L) Date Value 11/19/2021 16 05/11/2021 14 Hemoglobin (g/dL) Date Value 11/19/2021 14.5 05/11/2021 14.9 Hematocrit (%) Date Value 11/19/2021 44.0 05/11/2021 45.1 WBC (k/uL) Date Value 11/19/2021 7.10 05/11/2021 8.82 Vitamin A level pending ASSESSMENT/PLAN: 50 year old female with hereditary systemic amyloidosis with [id number] transthyretin mutation. There has been no definite evidence for significant amyloid deposition in her heart including on her repeat TTE obtained 02/12/19. She has been off treatment since 09/2020 due to allergic reaction to patisiran, which may be due to the PEG component as the active component is an siRNA. Unfortunately, it appears she is having symptoms suggestive of recurrence. Other treatment options would include inotersen or vutrisiran; however, these are both non-formulary. Inotersen also carries a risk of severe/life threatening thrombocytopenia, which she is understandably apprehensive about. 1) hereditary systemic amyloidosis with [id number] transthyretin mutation -Symptoms appear to be recurring -Labwork stable today, vitamin A level pending -Repeat TTE -Will explore further treatment options after above studies complete -Consider referral to allergy for PEG allergy testing if other treatment options not available or if pt reticent to proceed with them Patient seen and discussed with Dr. Wiggins. Estefany Mcclendon MD Hematology-Oncology Fellow [facility] STAFF PHYSICIAN NOTE OF PERSONAL INVOLVEMENT IN CARE I have reviewed the history and physical examination and progress note obtained and documented by the fellow and I personally participated in the freed components. I have discussed the case and management of the patient's care. The following comments revise or confirm relevant freed components of their note. Pt seen with Dr Mcclendon and pertinent aspects of history and exam repeated. Pt reports beginning to have some symptoms reminiscent of her neuropathic symptoms that she had had previously and which resolved with being on patisiran. Has been off patisiran due to allergic type reaction likely from carrier PEG molecule. Discussed with pt that other treatment options are potentially Vutisiran SC Q3 months (not on formulary but may be available soon) versus Inotersen SC on M, W, F first week of therapy and then weekly after that. Apparently Dr Salinas spoke to her about this in past but she is very reticent to consider this in light of potential side effects of thrombocytopenia and effects on the kidneys. Additionally she apparently had a response to diflunisal in past - it is likely that we could perhaps restart diflunisal but at a low every other day dosing. Will discuss with Dr Salinas further. DO Fanta Adames D.O. molder fitting Hematologic Oncology & Blood Disorders P. [phone] F. [phone] documented in this encounter [facility] 11-19-2021 Nurse Note Additional intake questions: Has the patient had fever, nausea, vomiting, diarrhea, constipation, fatigue for > 1 week? Yes, fatigue Does the patient have a decreased appetite? No Does patient want to see a Wax Pattern Assembler? No (yes to any of above refer patient to schedulers for dietitian appointment) ) Does patient have any new or increased numbness or tingling of extremities? No Is patient interested in fertility information? No Does patient need any prescription refills? Yes, LIP notified Gabapentin and Magnesium. Does patient have an advanced directive in place? Yes, copies are in [facility] documented in this encounter [facility] documented as of this encounter (statuses as of 10/20/2021) [facility] History of Past illness Narrative* Problem Noted Date Resolved Date Leiomyoma of uterus, unspecified 12/09/2009 02/13/2016 Iron deficiency anemia, unspecified 12/03/2009 02/13/2016 Fibroid, uterine 02/13/2016 Menorrhagia 02/13/2016 Dysmenorrhea 02/13/2016 toxemia /hypertension 02/13/2016 Iron deficiency anemia 6 documented as of this encounter (statuses as of 10/22/2021) [facility] History of Past illness Narrative* Problem Noted Date Resolved Date Leiomyoma of uterus, unspecified 12/09/2009 02/13/2016 Iron deficiency anemia, unspecified 12/03/2009 02/13/2016 Fibroid, uterine 02/13/2016 Menorrhagia 02/13/2016 Dysmenorrhea 02/13/2016 toxemia /hypertension 02/13/2016 Iron deficiency anemia 6 documented as of this encounter (statuses as of 11/23/2021) [facility] History of Past illness Narrative* Problem Noted Date Resolved Date Leiomyoma of uterus, unspecified 12/09/2009 02/13/2016 Iron deficiency anemia, unspecified 12/03/2009 02/13/2016 Fibroid, uterine 02/13/2016 Menorrhagia 02/13/2016 Dysmenorrhea 02/13/2016 toxemia /hypertension 02/13/2016 Iron deficiency anemia 6 documented as of this encounter (statuses as of 12/14/2021) [facility] History of Past illness Narrative* Problem Noted Date Resolved Date Leiomyoma of uterus, unspecified 12/09/2009 02/13/2016 Iron deficiency anemia, unspecified 12/03/2009 02/13/2016 Fibroid, uterine 02/13/2016 Menorrhagia 02/13/2016 Dysmenorrhea 02/13/2016 toxemia /hypertension 02/13/2016 Iron deficiency anemia 6 documented as of this encounter (statuses as of 12/15/2021) [facility] History of Past illness Narrative* Problem Noted Date Resolved Date Leiomyoma of uterus, unspecified 12/09/2009 02/13/2016 Iron deficiency anemia, unspecified 12/03/2009 02/13/2016 Fibroid, uterine 02/13/2016 Menorrhagia 02/13/2016 Dysmenorrhea 02/13/2016 toxemia /hypertension 02/13/2016 Iron deficiency anemia 6 documented as of this encounter (statuses as of 12/22/2021) [facility] History of Past illness Narrative* Problem Noted Date Resolved Date Leiomyoma of uterus, unspecified 12/09/2009 02/13/2016 Iron deficiency anemia, unspecified 12/03/2009 02/13/2016 Fibroid, uterine 02/13/2016 Menorrhagia 02/13/2016 Dysmenorrhea 02/13/2016 toxemia /hypertension 02/13/2016 Iron deficiency anemia 6 documented as of this encounter (statuses as of 01/06/2022) [facility] History of Past illness Narrative* Problem Noted Date Resolved Date Leiomyoma of uterus, unspecified 12/09/2009 02/13/2016 Iron deficiency anemia, unspecified 12/03/2009 02/13/2016 Fibroid, uterine 02/13/2016 Menorrhagia 02/13/2016 Dysmenorrhea 02/13/2016 toxemia /hypertension 02/13/2016 Iron deficiency anemia 6 documented as of this encounter (statuses as of 01/06/2022) [facility] History of Past illness Narrative* Problem Noted Date Resolved Date Leiomyoma of uterus, unspecified 12/09/2009 02/13/2016 Iron deficiency anemia, unspecified 12/03/2009 02/13/2016 Fibroid, uterine 02/13/2016 Menorrhagia 02/13/2016 Dysmenorrhea 02/13/2016 toxemia /hypertension 02/13/2016 Iron deficiency anemia 6 documented as of this encounter (statuses as of 01/07/2022) [facility] History of Past illness Narrative* Problem Noted Date Resolved Date Leiomyoma of uterus, unspecified 12/09/2009 02/13/2016 Iron deficiency anemia, unspecified 12/03/2009 02/13/2016 Fibroid, uterine 02/13/2016 Menorrhagia 02/13/2016 Dysmenorrhea 02/13/2016 toxemia /hypertension 02/13/2016 Iron deficiency anemia 6 documented as of this encounter (statuses as of 03/30/2022) [facility] History of Past illness Narrative* Problem Noted Date Resolved Date Leiomyoma of uterus, unspecified 12/09/2009 02/13/2016 Iron deficiency anemia, unspecified 12/03/2009 02/13/2016 Fibroid, uterine 02/13/2016 Menorrhagia 02/13/2016 Dysmenorrhea 02/13/2016 toxemia /hypertension 02/13/2016 Iron deficiency anemia 6 documented as of this encounter (statuses as of 04/19/2022) [facility] History of Past illness Narrative* Problem Noted Date Resolved Date Leiomyoma of uterus, unspecified 12/09/2009 02/13/2016 Iron deficiency anemia, unspecified 12/03/2009 02/13/2016 Fibroid, uterine 02/13/2016 Menorrhagia 02/13/2016 Dysmenorrhea 02/13/2016 toxemia /hypertension 02/13/2016 Iron deficiency anemia 6 documented as of this encounter (statuses as of 04/19/2022) [facility] History of Past illness Narrative* Problem Noted Date Resolved Date Leiomyoma of uterus, unspecified 12/09/2009 02/13/2016 Iron deficiency anemia, unspecified 12/03/2009 02/13/2016 Fibroid, uterine 02/13/2016 Menorrhagia 02/13/2016 Dysmenorrhea 02/13/2016 toxemia /hypertension 02/13/2016 Iron deficiency anemia 6 documented as of this encounter (statuses as of 05/03/2022) [facility] History of Past illness Narrative* Problem Noted Date Resolved Date Leiomyoma of uterus, unspecified 12/09/2009 02/13/2016 Iron deficiency anemia, unspecified 12/03/2009 02/13/2016 Fibroid, uterine 02/13/2016 Menorrhagia 02/13/2016 Dysmenorrhea 02/13/2016 toxemia /hypertension 02/13/2016 Iron deficiency anemia 6 documented as of this encounter (statuses as of 07/27/2022) [facility] History of Past illness Narrative* Problem Noted Date Resolved Date Leiomyoma of uterus, unspecified 12/09/2009 02/13/2016 Iron deficiency anemia, unspecified 12/03/2009 02/13/2016 Fibroid, uterine 02/13/2016 Menorrhagia 02/13/2016 Dysmenorrhea 02/13/2016 toxemia /hypertension 02/13/2016 Iron deficiency anemia 6 documented as of this encounter (statuses as of 08/17/2022) [address]24-2010 History of Past illness Narrative* Problem Noted Date Resolved Date Leiomyoma of uterus, unspecified 12/09/2009 02/13/2016 Iron deficiency anemia, unspecified 12/03/2009 02/13/2016 Fibroid, uterine 02/13/2016 Menorrhagia 02/13/2016 Dysmenorrhea 02/13/2016 toxemia /hypertension 02/13/2016 Iron deficiency anemia 6 documented as of this encounter (statuses as of 09/22/2022) [facility] History of Past illness Narrative* Problem Noted Date Diagnosed Date Resolved Date Leiomyoma of uterus, unspecified 12/09/2009 02/13/2016 Iron deficiency anemia, unspecified 12/03/2009 02/13/2016 Fibroid, uterine 02/13/2016 Menorrhagia 02/13/2016 Dysmenorrhea 02/13/2016 toxemia /hypertension 02/13/2016 Iron deficiency anemia 02/12 documented as of this encounter (statuses as of 12/22/2022) [facility] History of Past illness Narrative* Problem Noted Date Diagnosed Date Resolved Date Leiomyoma of uterus, unspecified 12/09/2009 02/13/2016 Iron deficiency anemia, unspecified 12/03/2009 02/13/2016 Fibroid, uterine 02/13/2016 Menorrhagia 02/13/2016 Dysmenorrhea 02/13/2016 toxemia /hypertension 02/13/2016 Iron deficiency anemia 02/12 documented as of this encounter (statuses as of 04/02/2023) [facility] Diagnosis Muscle cramps Cramp of limb [facility] Diagnosis Familial transthyretin amyloidosis (HCC)- Primary [facility] Diagnosis Amyloidogenic transthyretin amyloidosis (HCC)- Primary Other amyloidosis Neuropathy Mononeuritis of unspecified site [facility] Diagnosis Disturbance of skin sensation- Primary Familial amyloidosis (HCC) Other amyloidosis [facility] Diagnosis Muscle cramps Cramp of limb [facility] 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 [facility]* Diagnosis Muscle cramps Cramp of limb documented in this encounter [facility] for referral (narrative)* Outpatient Procedure (Routine) - Authorized Specialty Diagnoses / Procedures Referred By Cierra lucero Referred To [facility] Diagnoses Familial transthyretin amyloidosis (HCC) Procedures ECHO ECHO TTHRC R-T 2D W/WOM-MODE COMPL SPEC&COLR D Fanta Wiggins DO [address] [place] [address] [facility] [place] [address] [place] [address] Referral ID Status Reason Start Date Expiration Date Visits Requested Visits Authorized [id number] Authorized Auto-Generat ed Referral 11/20/2021 01/19/2022 1 1 [facility] Summary Purpose Family History No Family History Records FoundNo Family History Records Found Advance Directives Documents on File Type Date Recorded 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 Advance Directive(s) Advance Directive(s) 02/19/2016 12:00 AM Advance Directive(s) 02/18/2016 9:10 AM Documents on File Type Date Recorded 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 Advance Directive(s) 02/19/2016 12:00 AM Documents on File Type Date Recorded 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 Advance Directive(s) 02/19/2016 12:00 AM Reason for Referral Specialty Diagnoses / Procedures Referred By Cierra lucero Referred To Contact Fanta Wiggins DO [address] [place] [address] Referral ID Status Reason Start Date Expiration Date Visits Re quested Visits Authorized [id number] Closed 1 1 Additional Source Comments INFORMATION SOURCE (unrecogn ized section and content) DATE CREATED AUTHOR AUTHOR'S OSVALDO BURDEN 11/04/2022 [facility] Source Comments (unrecognize d section and content) In the event this informatio n is protected by the Federal Confidentiality of Alcohol and Drug Abuse Patient Records regulations: The Federal rules restrict any use of the information to criminally investigate or prosecute any alcohol or drug abuse patient.[facility] the event this information is protected by the Federal Confidentiality of Alcohol and Drug Abuse Patient Records regulations: The Federal rules restrict any use of the information to criminally investigate or prosecute any alcohol or drug abuse patient.[facility] the event this information is protected by the Federal Confidentiality of Alcohol and Drug Abuse Patient Records regulations: The Federal rules restrict any use of the information to criminally investigate or prosecute any alcohol or drug abuse patient.[facility] the event this information is protected by the Federal Confidentiality of Alcohol and Drug Abuse Patient Records regulations: The Federal rules restrict any use of the information to criminally investigate or prosecute any alcohol or drug abuse patient.[facility] the event this information is protected by the Federal Confidentiality of Alcohol and Drug Abuse Patient Records regulations: The Federal rules restrict any use of the information to criminally investigate or prosecute any alcohol or drug abuse patient.[facility] the event this information is protected by the Federal Confidentiality of Alcohol and Drug Abuse Patient Records regulations: The Federal rules restrict any use of the information to criminally investigate or prosecute any alcohol or drug abuse patient.[facility] the event this information is protected by the Federal Confidentiality of Alcohol and Drug Abuse Patient Records regulations: The Federal rules restrict any use of the information to criminally investigate or prosecute any alcohol or drug abuse patient.[facility] the event this information is protected by the Federal Confidentiality of Alcohol and Drug Abuse Patient Records regulations: The Federal rules restrict any use of the information to criminally investigate or prosecute any alcohol or drug abuse patient.[facility] the event this information is protected by the Federal Confidentiality of Alcohol and Drug Abuse Patient Records regulations: The Federal rules restrict any use of the information to criminally investigate or prosecute any alcohol or drug abuse patient.[facility] the event this information is protected by the Federal Confidentiality of Alcohol and Drug Abuse Patient Records regulations: The Federal rules restrict any use of the information to criminally investigate or prosecute any alcohol or drug abuse patient.[facility] the event this information is protected by the Federal Confidentiality of Alcohol and Drug Abuse Patient Records regulations: The Federal rules restrict any use of the information to criminally investigate or prosecute any alcohol or drug abuse patient.[facility] the event this information is protected by the Federal Confidentiality of Alcohol and Drug Abuse Patient Records regulations: The Federal rules restrict any use of the information to criminally investigate or prosecute any alcohol or drug abuse patient.[facility] the event this information is protected by the Federal Confidentiality of Alcohol and Drug Abuse Patient Records regulations: The Federal rules restrict any use of the information to criminally investigate or prosecute any alcohol or drug abuse patient.[facility] the event this information is protected by the Federal Confidentiality of Alcohol and Drug Abuse Patient Records regulations: The Federal rules restrict any use of the information to criminally investigate or prosecute any alcohol or drug abuse patient.[facility] the event this information is protected by the Federal Confidentiality of Alcohol and Drug Abuse Patient Records regulations: The Federal rules restrict any use of the information to criminally investigate or prosecute any alcohol or drug abuse patient.[facility] the event this information is protected by the Federal Confidentiality of Alcohol and Drug Abuse Patient Records regulations: The Federal rules restrict any use of the information to criminally investigate or prosecute any alcohol or drug abuse patient.[facility] the event this information is protected by the Federal Confidentiality of Alcohol and Drug Abuse Patient Records regulations: The Federal rules restrict any use of the information to criminally investigate or prosecute any alcohol or drug abuse patient.[facility] the event this information is protected by the Federal Confidentiality of Alcohol and Drug Abuse Patient Records regulations: The Federal rules restrict any use of the information to criminally investigate or prosecute any alcohol or drug abuse patient.[facility] Reason for Visit (unrecogniz ed section and content) Reason Comments Established Patient Reason Comments Established Patient Reason Onset Date Comments Refill Request 01/06/2022 Reason Onset Date Comments Refill Request 01/06/2022 Care Teams (unrecognized sec tion and content) Personal Attendant Relationship Specialty Start Date End Date Nat Rome [address] [place] [address] PCP - General Family Practice 10/14/17 [place] [address] [place] [address] Specialty Oxyacetylene Welder Hematology/Oncology 01/29/19 Personal Attendant Relationship Specialty Start Date End Date Zoe Romejesse Barger TylorNeli [facility] [place] [address] PCP - General Family Practice 10/14/17 [place] [address] [place] [address] Specialty Oxyacetylene Welder Hematology/Oncology 01/29/19 Personal Attendant Relationship Specialty Start Date End [place] [address] PCP - General Family Practice 10/14/17 [place] [address] [place] [address] Specialty Oxyacetylene Welder Hematology/Oncology 01/29/19 Personal Attendant Relationship Specialty Start Date [place] [address] PCP - General Family Practice 10/14/17 Kelsey Hargrove, CHRISTIAN [address] [place] [address] Specialty Oxyacetylene Welder Hematology/Oncology 01/29/19 Personal Attendant Relationship Specialty Start Date [place] [address] PCP - General Family Practice 10/14/17 [place] [address] [place] [address] Specialty Oxyacetylene Welder Hematology/Oncology 01/29/19 Personal Attendant Relationship Specialty Start Date End Date [place] [address] PCP - General Family Medicine 10/14/17 Kelsey Hargrove, CHRISTIAN [address] [place] [address] Specialty Oxyacetylene Welder Hematology/Oncology 01/29/19 Personal Attendant Relationship Specialty Start Date End Date CorneliusNat swanson [address] [place] [address] PCP - General Family Medicine 10/14/17 [place] [address] [place] [address] Specialty Oxyacetylene Welder Hematology/Oncology 01/29/19 Personal Attendant Relationship Specialty Start Date End Date CorneliusNat swanson [address] [place] [address] PCP - General Family Medicine 10/14/17 [place] [address] [place] [address] Specialty Oxyacetylene Welder Hematology/Oncology 01/29/19 Personal Attendant Relationship Specialty Start Date End Date Caron Pinto MACHINIST INSTRUCTOR [address] [place] [address] PCP - General Internal Medicine 02/08/22 [place] [address] [place] [address] Specialty Oxyacetylene Welder Hematology/Oncology 01/29/19 Personal Attendant Relationship Specialty Start Date End Date Caron Pinto MACHINIST INSTRUCTOR [address] [place] [address] PCP - General Internal Medicine 02/08/22 [place] [address] [place] [address] Specialty Oxyacetylene Welder Hematology/Oncology 01/29/19 Personal Attendant Relationship Specialty Start Date End Date Caron Pinto MACHINIST INSTRUCTOR [address] [place] [address] PCP - General Internal Medicine 02/08/22 [place] [address] [place] [address] Specialty Oxyacetylene Welder Hematology/Oncology 01/29/19 Personal Attendant Relationship Specialty Start Date End Date Caron Pinto CNP [address] [place] [address] PCP - General Internal Medicine 02/08/22 [place] [address] [place], [place] [id number] Specialty Oxyacetylene Welder Hematology/Oncology 01/29/19 Personal Attendant Relationship Specialty Start Date End Date Caron Pinto CNP [address] [place] [address] PCP - General Internal Medicine 02/08/22 [place] [address] [place], [place] [id number] Specialty Oxyacetylene Welder Hematology/Oncology 01/29/19 Personal Attendant Relationship Specialty Start Date End Date Caron Pinto CNP [address] [place] [address] PCP - General Internal Medicine 02/08/22 [place] [address] [place] [address] Specialty Oxyacetylene Welder Hematology/Oncology 01/29/19 Personal Attendant Relationship Specialty Start Date End Date Caron Pinto CNP [address] [place] [address] PCP - General Internal Medicine 02/08/22 [place] [address] [place] [address] Specialty Oxyacetylene Welder Hematology/Oncology 01/29/19 FOR RECORDS PERTAINING TO PATIENTS WHO ARE OR HAVE BEEN ENROLLED IN A CHEMICAL DEPENDENCY/SUBSTANCEABUSE PROGRAM, SOME INFORMATION MAY BE OMITTED. This clinical summary was aggregated from multiple sources. Caution should be exercised in using it in the provision of clinical care. This summary normalizes information from multiple sources, and as a consequence, information in this document may materially change the coding, format and clinical context of patient data. In addition, data may be omitted in some cases. CLINICAL DECISIONS SHOULD BE BASED ON THE PRIMARY CLINICAL RECORDS. [facility]. provides no warranty or guarantee of the accuracy or completeness of information in this document.
== END | disposition home or self-care (01) ==
LOC: OPBI 07:38
PROVIDERS: Referring Provider Nurse Practitioner Family; Visit Provider Nurse Practitioner Family
DX: Z12.31 Encounter for screening mammogram for malignant neoplasm of breast (principal)
CPT/HCPCS: 77063; 77067